=== PATIENT | female | born 1955 | race Caucasian/White ===

== ENCOUNTER 2017-03-26 08:40 | Observation (INO) ==
[2017-03-26] MEDS ORDERED: Ipratropium/Albuterol Neb 3 ML IH ONE (09:03)
[2017-03-26] MEDS ORDERED: methylPREDNISolone 125 MG/2 ML VIAL IVP ONE (09:03)
[2017-03-26] MEDS ORDERED: Aspirin 81 MG TAB.CHEW PO ONE (09:06)
--- NOTE | 2017-03-26 09:11 | Emergency Department Note ---
Disposition Clinical Impression: Acute exacerbation of chronic obstructive airways disease Disposition: Admitted As Inpatient Condition: Good Forms: ED Satisfaction Letter Time of Disposition: 09:12 SOB HPI - General Chief Complaint: ED Shortness of Breath/Dyspnea Stated Complaint: KUSH Time Seen by Provider: 03/26/17 08:50 Source: patient Limitations: no limitations Nursing Notes Reviewed: Yes Vital Signs Reviewed: Yes - History of Present Illness 61-year-old female presents with concerns of increasing shortness of breath over the past 2-3 days. Patient reports chest pain 2 nights ago which has since improved however she has developed increasing shortness of breath at rest and with conversation. Patient has a history of MS with 2 stents she also has a history of COPD and congestive heart failure. Patient states she had a meal of [place] fried chicken for Mother's Day 3 days ago. She takes Lasix 40 mg daily and has not missed any of her doses. Patient reports occasional diaphoresis and nausea associated with the shortness of breath. Patient reports a cough that is productive of yellow-green sputum. Patient denies near syncopal symptoms. - Related Data Home Medications Medication Instructions Recorded Confirmed Albuterol Sulfate [Albuterol 90 mcg IH Q4HR PRN 11/28/15 11/28/15 Inhaler] Aspirin [Adult Low Dose Aspirin EC] 81 mg PO DAILY 11/28/15 11/28/15 Atorvastatin Calcium [Lipitor] 80 mg PO HS 11/28/15 11/28/15 Carbidopa/Levodopa 25/100 [Sinemet 1 each PO TID 11/28/15 11/28/15 25/100] Carvedilol [Coreg] 25 mg PO BID 11/28/15 11/28/15 Citalopram Hydrobromide 40 mg PO DAILY 11/28/15 11/28/15 [Citalopram HBr] Furosemide [Lasix] 40 mg PO DAILY 11/28/15 11/28/15 GlipiZIDE XL (24 HR) [Glucotrol XL] 10 mg PO DAILY 11/28/15 11/28/15 Iron Polysaccharide Complex 150 mg PO BID 11/28/15 11/28/15 [Ferric X-150] Losartan Potassium [Cozaar] 100 mg PO DAILY 11/28/15 11/28/15 Ropinirole HCl [Requip] 2 mg PO HS 11/28/15 11/28/15 amLODIPine [Norvasc] 5 mg PO DAILY 11/28/15 11/28/15 hydrALAZINE [HydrALAZINE] 25 mg PO BID 11/28/15 11/28/15 metFORMIN [Glucophage] 500 mg PO BID 11/28/15 11/28/15 Allergies Allergy/AdvReac Type Severity Reaction Status Date / Time No Known Allergies Allergy Verified 03/26/17 08:45 All systems ED: reviewed and negative except as stated. Constitutional: Reports: weakness. Denies: fever, chills ENT ED: Denies: ear pain, throat pain Cardiovascular: Reports: dyspnea on exertion. Denies: chest pain, palpitations , syncope Respiratory: Reports: cough, dyspnea, wheezes Gastrointestinal: Reports: nausea. Denies: abdominal pain, vomiting, diarrhea Musculoskeletal: Denies: back pain, neck pain Past Medical History - Past Medical History Attestation: Yes The following information was validated with the patient. 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 Musculoskeletal: Normal strength, no tenderness, swelling or deformity GI: Soft, nontender, nondistended. Bowel sounds present Neuro: A&O to person, place, time and situation. No focal deficits noted on exam Psychiatric: cooperative and appropriate mood and affect. - General Limitations: no limitations General appearance: alert Course Vital Signs Temperature 98 F 03/26/17 08:46 Pulse Rate 70 03/26/17 08:46 Respiratory Rate 24 03/26/17 08:46 Blood Pressure 194/76 03/26/17 08:46 O2 Sat by Pulse Oximetry 93 03/26/17 08:46 Temperature 98 F 03/26/17 08:46 Pulse Rate 70 03/26/17 08:46 Respiratory Rate 24 03/26/17 08:46 Blood Pressure 194/76 03/26/17 08:46 O2 Sat by Pulse Oximetry 93 03/26/17 08:46 Oxygen Delivery Oxygen Delivery Room Air Shortness of Breath/Dyspnea - Medical Records Medical records reviewed: Yes I reviewed the patient's medical records. - Lab Data Lab results reviewed: Yes I reviewed the patient's lab results. - Radiology Data Radiology results reviewed: Yes I reviewed the patient's radiology results. - EKG Data EKG attestation: Yes I reviewed and interpreted this EKG. EKG results narrative: ECG - interpreted by ED physician. Rate 69, normal sinus rhythm, no STEMI, T- wave inversion in leads i, ii, V5 V6, unchanged from previous.
[2017-03-26 09:21] LABS: Basophils # 0.1 K/mcL (0.0-0.2); Basophils % 0.7 %; Eosinophils # 0.2 K/mcL (0.0-0.6); Eosinophils % 3.2 %; Hematocrit 34.4 % (35.3-44.9); Immature Granulocytes % 0.3 % (0-4); Lymphocytes # 0.7 K/mcL (0.6-4.6); Mean Corpuscular Hemoglobin 27.2 pg (28.0-33.3); Mean Corpuscular Volume 84.9 fL (83.0-100.0); Mean Platelet Volume 10.8 fL (9.4-12.4); Monocytes # 0.8 K/mcL (0.0-1.3); Monocytes % 10.1 %; Neutrophils # 5.8 K/mcL (1.6-8.9); Platelet Count 162 K/mcL (140-400); Red Blood Count 4.05 M/mcL (3.82-4.97); Red Cell Distribution Width 16.3 % (11.5-14.5); Segmented Neutrophils % 76.7 %
[2017-03-26 09:28] LABS: INR 1.2; Prothrombin Time 12.6 Seconds (9.4-12.1)
[2017-03-26 09:31] LABS: Activated Partial Thrombo Time 33.2 Seconds (26.0-36.0)
[2017-03-26 09:33] LABS: BUN/Creatinine Ratio 12 (6-26); Blood Urea Nitrogen 11 mg/dL (7-20); Calcium 10.4 mg/dL (8.6-10.8); Carbon Dioxide 26 mEq/L (19-29); Chloride 107 mEq/L (98-109); Glucose 56 mg/dL (70-99); Osmolality,Calculated 287 (280-300); Potassium 3.7 mEq/L (3.5-4.5); Sodium 140 mEq/L (136-145); eGFR For African Americans > 60 (> 60); eGFR For Non-African Americans > 60 (> 60)
[2017-03-26] MEDS ORDERED: Furosemide 40 MG/4 ML VIAL IVP ONE (09:50)
[2017-03-26] MEDS ORDERED: Naloxone 0.4 MG/ML INJ IVP PRN (10:45)
[2017-03-26] MEDS ORDERED: Albuterol 2.5 MG/3 ML NEBULIZER IH PRN (10:47)
[2017-03-26] MEDS ORDERED: Dextrose Gel 15 GM PO PRN ×2 (10:49)
[2017-03-26] MEDS ORDERED: D5% in Water 1,000 ML IVC PRN (10:49)
[2017-03-26] MEDS ORDERED: *HR* Dextrose 50 % in Water (Syg) 50 ML SYRINGE IVP PRN (10:49)
--- NOTE | 2017-03-26 10:57 | Internal Med History&Physical ---
Date of Encounter: 03/26/17 Time of Encounter: 10:57 Assessment and Plan (1) Acute exacerbation of CHF (congestive heart failure) Current visit: Yes Status: Acute 1 patient has been excruciating increasing shortness of breath and lower extremity edema for approximately 2-3 days. BNP elevated chest x-ray basilar congestion patient has history of CHF has only been taking half a dose of Lasix daily. We will diuresis patient continued IV Lasix twice a day 2 obtain cardiac echo 3 continue his cardiac monitoring 4 monitor intake output daily weights 5 low-sodium diet 6 oxygen as needed to maintain SPO2 greater than 92% 7 fluid restriction Qualifiers: Congestive heart failure type: diastolic Qualified Code(s): I50.33 - Acute on chronic diastolic (congestive) heart failure (2) HTN (hypertension) Current visit: Yes Status: Chronic 1 continue home medications goal is to maintain systolic less than 140 2 low sodium diet Qualifiers: Hypertension type: essential hypertension Qualified Code(s): I10 - Essential (primary) hypertension (3) Diabetes mellitus Current visit: Yes Status: Chronic 1 patient's on metformin at home we will hold for now. 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 patient is a current smoker she has rescue inhaler at home however she is not on any home oxygen. Patient has been expressing increasing shortness of breath. Encourage patient to stop smoking 2 continue with bronchodilators 3 oxygen titrating to maintain SPO2 greater than 92% 4 patient may benefit from a 6 minute walk test for oxygen placement home. Patient states she has been experiencing shortness of breath over the past few months. She has attempted to quit smoking in the past has not been successful. She is not on any home oxygen at this time Qualifiers: COPD type: unspecified COPD Qualified Code(s): J44.9 - Chronic obstructive pulmonary disease, unspecified (6) Tobacco abuse Current visit: Yes Status: Acute 1 patient smokes 1 pack a day encouraged patient to stop smoking. Nicotine patch Internal Medicine - H&P: HPI Chief complaint: Shortness of breath Admitted From: Emergency Dept Plans for Post Hospital Care: Home History of present illness: Ms. Dinero is a 61 year old female past medical history of coronary artery disease with stent placement diastolic heart failure diabetes type 2 COPD tobacco abuse hypertension. Continue the patient she has been expressing increasing shortness of breath over the past 2-3 days. She was breath occurs at rest and on exertion. She is using albuterol inhaler without any relief. She denies any palpitations weight gain or weight loss she does admit to lower extremity edema wheezing cough with yellow-green sputum. Patient states cough is chronic and there is no change in sputum production. She denies any fevers chills nausea vomiting diarrhea orthopnea or chest pain. Patient did have heartburn on Saturday which she took a Zantac and was resolved. Patient presented to the ER with above complaints. Coronary ER records lab work is unremarkable except BNP was 1512 troponin 0.03 chest x-ray did reveal some vascular congestion. EKG with no ST-T wave abnormalities. Patient was given breathing treatment IV Lasix as well as steroids. She has been admitted for further workup and evaluation. Presently patient denies any chest pain or shortness of breath she does not appear to be any respiratory distress. Oxygen saturation is 95% on 2 L nasal cannula. Lung sounds with scattered wheezes and rhonchi throughout patient does have a moist cough. She has slight pedal edema to left lower extremity. Heart sounds S1-S2 with no rubs, clicks or murmurs noted. After review medications patient did admit she only takes half her Lasix daily and does not use her inhaler as frequently as she should. She continues to smoke a pack of cigarettes daily. Encourage patient to stop smoking. I reviewed this case with Dr. Chowdhury who agrees with plan. Past Med Surg Social Fam HX - Past Medical History Medical history: COPD, coronary artery disease, diabetes, other Psychiatric history: depression - Past Surgical History Surgical History: pacemaker/AICD, other - Social History Smoking Status: Current every day smoker Smokeless Tobacco Status: No Alcohol use: none Drug use: none - Family History Father Living Status: Cause of : Stroke Mother Living Status: Cause of : Heart disease Hx Family Cardiac Disorders: Yes Hx Family Endocrine Disorder: Yes Internal Medicine - H&P: Meds Albuterol Sulfate [Albuterol Inhaler] 90 mcg IH Q4HR PRN 11/28/15 [History] Aspirin [Adult Low Dose Aspirin EC] 81 mg PO DAILY 11/28/15 [History] Atorvastatin Calcium [Lipitor] 80 mg PO HS 11/28/15 [History] Carbidopa/Levodopa 25/100 [Sinemet 25/100] 1 each PO TID 11/28/15 [History] Carvedilol [Coreg] 25 mg PO BID 11/28/15 [History] Citalopram Hydrobromide [Citalopram HBr] 40 mg PO DAILY 11/28/15 [History] Furosemide [Lasix] 40 mg PO DAILY 11/28/15 [History] GlipiZIDE XL (24 HR) [Glucotrol XL] 10 mg PO DAILY 11/28/15 [History] Iron Polysaccharide Complex [Ferric X-150] 150 mg PO BID 11/28/15 [History] Losartan Potassium [Cozaar] 100 mg PO DAILY 11/28/15 [History] Ropinirole HCl [Requip] 2 mg PO HS 11/28/15 [History] amLODIPine [Norvasc] 5 mg PO DAILY 11/28/15 [History] hydrALAZINE [HydrALAZINE] 25 mg PO BID 11/28/15 [History] metFORMIN [Glucophage] 500 mg PO BID 11/28/15 [History] Allergies No Known Allergies Allergy (Verified 03/26/17 08:45) All Systems PM: A 10-system review of systems was performed and is negative for pertinent findings except as documented above in the HPI. - Constitutional Constitutional: no chills, no fever(s), no night sweats - EENT Eyes: no change in vision, no discharge, no pain, no photophobia - Cardiovascular Cardiovascular ROS IM: dyspnea, edema - Respiratory Respiratory: cough, dyspnea, wheezing - Gastrointestinal Gastrointestinal: heartburn - Genitourinary Genitourinary: no change in urinary stream, no dysuria, no flank pain, no hematuria - Musculoskeletal Musculoskeletal ROS IM: no numbness, no tingling - Integumentary Integumentary IM: no rash, no unusual bruising - Neurological Neurological ROS: no confusion, no convulsions, no focal weakness, no numbness, no tingling, no tremor(s) - Hematologic/Lymphatic Hematologic/Lymphatic: no easy bruising - Constitutional Vitals: Temp Pulse Resp BP Pulse Ox 98 F 70 18 188/92 95 03/26/17 08:46 03/26/17 10:01 03/26/17 10:46 03/26/17 10:46 03/26/17 10:01 General appearance: Present: A&O X 3, answers questions appropriately - Head Head exam: Present: atraumatic, normocephalic - Eye Eye exam: Present: PERRL, conjuntiva pink, sclera anicteric Pupils: Present: PERRL - Neck Neck exam general surgery: Present: supple, trachea midline. Absent: lymphadenopathy - Respiratory Respiratory exam: Present: rhonchi, wheezes. Absent: accessory muscle use, rales - Cardiovascular Cardiovascular exam: Present: RRR, +S1, +S2. Absent: diastolic murmur, gallop, rubs, systolic murmur - GI/Abdominal GI/Abdominal exam: Present: normal bowel sounds, soft, no peritoneal signs. Absent: distended, tenderness - Extremities Exam Extremities exam: Present: pedal edema, warm, radial pulses palpable and symetrical. Absent: calf tenderness, cyanotic - Neurological Exam Neurological exam: Present: CN II-XII intact, oriented X3, no focal deficits. Absent: pronater drift, facial droop, speech deficit - Skin Skin exam: Present: dry, intact Internal Med - H&P Results - Labs CBC & Chem 7: 03/26/17 09:13 03/26/17 09:13 - EKG Data EKG shows normal: sinus rhythm - EKG Data Prior EKG available for review: yes When compared to previous EKG: there is no significant change - Diagnostic Studies Other Images Additional comments: Chest X-Ray 03/26/17 09:05 IMPRESSION: 1. Minimal prominence of the pulmonary vasculature bilaterally. 2. Unchanged nodular opacity projecting over the right mid lung. D/ / Regan Murphy MD / Regan Murphy MD Interpreting Provider: Regan Murphy MD
[2017-03-26] MEDS: Ipratropium/Albuterol Neb 3 ML IH SCH ×3 (11:38→23:03)
[2017-03-26] MEDS: Insulin LISPRO 300 UNITS/3 ML VIAL SQ SCH ×3 (11:43→21:23)
--- NOTE | 2017-03-26 11:54 | Event Note ---
Date of Encounter: 03/26/17 Time of Encounter: 11:51 Patient seen and examined with TILE GRINDER. Acute CHF. Lasix 40 IV BID. Mariano catheter. Strict I and O. She has coarse breath sound and some expiratory wheeze. I think main pathology is volume. She has underlying COPD and we will give nebulizer treatments. Sputum culture as she has been having yellowish sputum. Afebrile without leucocytosis and no pneumonia on CXR. Check echocardiogram
[2017-03-26] MEDS ORDERED: methylPREDNISolone 125 MG/2 ML VIAL IVP SCH (12:00)
[2017-03-26] MEDS: Nicotine 14 MG PATCH.TD24 TD SCH (12:28)
[2017-03-26] MEDS: Aspirin Enteric Coated 81 MG Tablet PO SCH (13:29)
[2017-03-26] MEDS: hydrALAZINE 25 MG TABLET PO SCH ×2 (13:29→21:22)
--- NOTE | 2017-03-26 15:02 | Electrocardiograph Report ---
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
[2017-03-26] MEDS: Carbidopa/Levodopa 25/100 TABLET PO SCH ×2 (16:20→21:22)
[2017-03-26] MEDS ORDERED: Acetaminophen 325 MG TABLET PO PRN (20:11)
[2017-03-26] MEDS ORDERED: hydrALAZINE 25 MG TABLET PO SCH (21:00)
[2017-03-26] MEDS ORDERED: Insulin LISPRO 300 UNITS/3 ML VIAL SQ SCH (21:00)
[2017-03-26] MEDS: Iron Polysaccharide Complex 150 MG CAPSULE PO SCH (21:22)
[2017-03-26] MEDS: Furosemide 40 MG/4 ML VIAL IVP SCH (21:22)
[2017-03-26] MEDS: rOPINIRole 1 MG TABLET PO SCH (21:22)
[2017-03-27 03:59] LABS: Basophils % 0.1 %; Hematocrit 34.7 % (35.3-44.9); Hemoglobin 11.4 g/dL (11.5-15.4); Immature Granulocytes % 0.8 % (0-4); Lymphocytes # 0.4 K/mcL (0.6-4.6); Lymphocytes % 4.7 %; Mean Corpuscular HGB Conc 32.9 g/dL (31.6-35.5); Mean Corpuscular Hemoglobin 27.5 pg (28.0-33.3); Mean Corpuscular Volume 83.6 fL (83.0-100.0); Mean Platelet Volume 11.9 fL (9.4-12.4); Monocytes # 0.5 K/mcL (0.0-1.3); Neutrophils # 6.6 K/mcL (1.6-8.9); Platelet Count 185 K/mcL (140-400); Red Blood Count 4.15 M/mcL (3.82-4.97); Red Cell Distribution Width 15.9 % (11.5-14.5); Segmented Neutrophils % 87.4 %
[2017-03-27 04:15] LABS: Calcium 11.1 mg/dL (8.6-10.8); Potassium 3.9 mEq/L (3.5-4.5)
[2017-03-27] MEDS: Ipratropium/Albuterol Neb 3 ML IH SCH ×4 (04:45→22:23)
[2017-03-27] MEDS: *HR* Enoxaparin 40 MG/0.4 ML SYRINGE SQ SCH (06:14)
[2017-03-27] MEDS ORDERED: Furosemide 40 MG/4 ML VIAL IVP SCH (09:00)
[2017-03-27] MEDS ORDERED: NON-FORMULARY MEDICATION 1 EACH EACH (Losartan Potassium [Cozaar] 100 MG) PO SCH (09:00)
[2017-03-27] MEDS: Insulin LISPRO 300 UNITS/3 ML VIAL SQ SCH ×4 (09:55→20:51)
[2017-03-27] MEDS: Aspirin Enteric Coated 81 MG Tablet PO SCH (09:56)
[2017-03-27] MEDS: Furosemide 40 MG/4 ML VIAL IVP SCH ×2 (09:56→20:59)
[2017-03-27] MEDS: Nicotine 14 MG PATCH.TD24 TD SCH (09:56)
[2017-03-27] MEDS: Iron Polysaccharide Complex 150 MG CAPSULE PO SCH ×2 (09:56→20:56)
[2017-03-27] MEDS: hydrALAZINE 25 MG TABLET PO SCH ×3 (09:56→20:56)
[2017-03-27] MEDS: Carbidopa/Levodopa 25/100 TABLET PO SCH ×3 (09:57→20:55)
--- NOTE | 2017-03-27 10:16 | ECHO - Doppler Report ---
Echocardiogram Name: Kim Dinero Date of Study: 03/26/2017 Date: 1955 Ht: 64.0 in Medical Record#: [id number] Age: 61 Wt: 164.0 lb Gender: Female BSA: 1.8 Order #: [id number] Location: [facility] Room #: 3B39 Reading Physician: Duncan Ventura MD, [facility] Tailman: Deanna Lopez Ordering Physician: Tamanna Frias CNP Primary Physician: Fernando Soto DO Indications: Shortness of breath Impressions: Normal LV systolic function, LVEF 60%. Severe concentric left ventricular hypertrophy. Moderate left ventricular diastolic dysfunction. Normal right ventricular size and function. A device lead was visualized in the right atrium and right ventricle. Moderately dilated left atrium. No significant valvular dysfunction. Mild pulmonary hypertension. Estimated RVSP = 36 mmHg. Blood pressure was elevated (194/74) at the time of this study. Left Ventricular Wall Motion: Rest Echo Findings All wall segments showed normal motion. Findings: Study Quality * Suboptimal echo windows. ECG Findings * Normal sinus rhythm. Left Ventricle * Normal LV systolic function, LVEF 60%. * Normal LV chamber size. * Severe concentric left ventricular hypertrophy. * Moderate left ventricular diastolic dysfunction. Right Ventricle * Normal right ventricular size and function. Device lead * A device lead was visualized in the right atrium and right ventricle. Left Atrium * Moderately dilated left atrium. Right Atrium * Normal right atrial size. Aorta * Normally sized aortic root. Pericardium * There is no pericardial effusion present. IVC * Normal IVC dimensions and inspiratory collapse. Aortic Valve * Aortic valve not well visualized. Appears mild-moderately sclerotic. * No aortic stenosis. * No aortic regurgitation. Mitral Valve * Moderate mitral annular calcification * No mitral stenosis. * Trace mitral regurgitation. Tricuspid Valve * Normal tricuspid valve structure. * No tricuspid stenosis. * Trace tricuspid regurgitation. * Mild pulmonary hypertension. Estimated RVSP = 36 mmHg. Pulmonic Valve * Pulmonic valve not well visualized. * No pulmonic stenosis. * Trace pulmonic regurgitation. History Hypertension Diabetes Hypercholesteremia History of Smoking Years 40 Packs 1 Family History of CAD History of CAD/PTCA Myocardial Infarction Congestive Heart Failure Pacer/ICD Implant 02/25/2014 a Previous Echo was performed. Measurements: BP: 194/ 74 2D Normal Values RVIDd: 2.70 cm IVSd: 2.30 cm 0.6 - 1.0 cm LVIDd: 4.60 cm 3.7 - 5.6 cm LVPWd: 1.90 cm 0.6 - 1.1 cm LVIDs: 1.90 cm 1.5 - 3.6 cm AO: 3.30 cm < 4.0 cm LA volume: 70 Mitral Valve Peak E:1.66 m/sec Peak A:1.08 m/sec E/A Ratio:1.5 Peak E' Lat Marshall:4.29 cm/s Peak E' Med Marshall:3.22 cm/s E/E' Lat Ratio:38.7 E/E' Med Ratio:51.6 Tricuspid Valve TV Regurg Peak Grad: 33.00mmHg TV Regurg Peak Marshall: 2.90m/sec Updated by Duncan Ventura MD, [facility] on 03/27/2017 10:08:40 AM electronically signed on 03/27/2017 10:09:28 AM with status of Final Wall Motion Lobo: 1=Normal, 2=Hypokinesis, 3=Akinesis, 4=Dyskinesis, 5=Aneurysmal, 6=Hyperkinetic, X=Not Visualized (Blank)=Missing
--- NOTE | 2017-03-27 11:59 | Internal Med Progress Note ---
Date of Encounter: 03/27/17 Time of Encounter: 09:30 - Assessment and plan (1) Acute exacerbation of CHF (congestive heart failure) Current Visit: Yes Status: Acute Assessment and plan: Diuresing with IV furosemide. Patient's pedal edema has resolved. Her shortness of breath is improving. Upon admission, she was on 3 L per nasal cannula, will wean to room air as tolerated. No oxygen at home. Chest x-ray consistent with pulmonary vascular congestion. Echocardiogram consistent with diastolic heart failure with preserved ejection fraction. Acute on chronic diastolic heart failure with acute exacerbation. Current echocardiogram revealing severe concentric left ventricular hypertrophy, and when compared from her echocardiogram in 02/25/14, is consistent. Her echocardiogram in the past in 2013 also reveals severe diastolic dysfunction, current readings with moderate diastolic dysfunction. Current echocardiogram appears improved from prior. We will continue to diurese. ITS Impressions Chest X-Ray 03/26/17 09:05 IMPRESSION: 1. Minimal prominence of the pulmonary vasculature bilaterally. 2. Unchanged nodular opacity projecting over the right mid lung. D/ / Regan Murphy MD / Regan Murphy MD Interpreting Provider: Regan Murphy MD Echocardiogram impressions: Normal LV systolic function, LVEF 60%. Severe concentric left ventricular hypertrophy. Moderate left ventricular diastolic dysfunction. Normal right ventricular size and function. A device lead was visualized in the right atrium and right ventricle. Moderately dilated left atrium. No significant valvular dysfunction. Mild pulmonary hypertension. Estimated RVSP equals 36 mmHg. Blood pressure is elevated (194/74) at the time of the study. Qualifiers: Congestive heart failure type: diastolic Qualified Code(s): I50.33 - Acute on chronic diastolic (congestive) heart failure (2) Acute exacerbation of chronic obstructive airways disease Current Visit: Yes Status: Acute Assessment and plan: Examination more consistent with fluid overload however patient does have wheezing to her left lung bermudez, will continue duo nebs and add guaifenesin as she has a nonproductive cough. She is currently on 3 L per nasal cannula, wean as she tolerates. (3) Acute respiratory failure Current Visit: Yes Status: Acute Assessment and plan: Does not use oxygen at home. Was on 3.5 L per nasal cannula initially upon admission, will wean as she tolerates. (4) CKD (chronic kidney disease) stage 3, GFR 30-59 ml/min Current Visit: Yes Status: Chronic Assessment and plan: Renal functioning is now consistent with her baseline. Mild HEMANTH overnight- but now at her baseline. Initial renal functioning consistent with fluid overload. Will trend with diuresing (5) HTN (hypertension) Current Visit: Yes Status: Chronic Assessment and plan: Uncontrolled despite continuation of her home medication of carvedilol 25 mg twice a day and losartan 100 mg daily. Diuresing with IV furosemide. Will add amlodipine. ARB okay at this time- will hold if renal functioning declines. Qualifiers: Hypertension type: essential hypertension Qualified Code(s): I10 - Essential (primary) hypertension (6) Diabetes mellitus Current Visit: Yes Status: Chronic Assessment and plan: Controlled at home with an A1c of 6.5%. Uncontrolled since arrival secondary to high dose IV steroids- continuing to adjust insulin to slowly bring glucose back down- goal of not more than 100 per hour decrease. (7) DVT prophylaxis Current Visit: Yes Status: Acute Assessment and plan: Subcutaneous Lovenox (8) COPD (chronic obstructive pulmonary disease) Current Visit: Yes Status: Chronic Qualifiers: COPD type: unspecified COPD Qualified Code(s): J44.9 - Chronic obstructive pulmonary disease, unspecified (9) Tobacco abuse Current Visit: Yes Status: Chronic Assessment and plan: Declines counseling at this time - Subjective Interval history: Patient seen and examined. On examination, patient sitting upright in bed conversing with her . Patient currently complains of a headache and denies vision changes or gait abnormalities. She states her shortness of breath is improving. She states that her cough is now nonproductive. She states she is eating well. - Constitutional Vitals: Temp Pulse Resp BP Pulse Ox 98.6 F 71 16 189/67 94 03/27/17 11:10 03/27/17 11:10 03/27/17 11:24 03/27/17 11:10 03/27/17 11:24 General appearance: Present: A&O X 3, pleasant, no acute distress, answers questions appropriately - Head Head exam: Present: atraumatic, normocephalic - Eye Eye exam: Present: PERRL, conjuntiva pink, sclera anicteric Pupils: Present: PERRL - Neck Neck exam general surgery: Present: supple, trachea midline. Absent: lymphadenopathy - Respiratory Respiratory exam: Present: accessory muscle use, decreased breath sounds, wheezes (On the left, right side clear). Absent: rales, respiratory distress, rhonchi - Cardiovascular Cardiovascular exam: Present: RRR, +S1, +S2. Absent: diastolic murmur, gallop, rubs, systolic murmur - GI/Abdominal GI/Abdominal exam: Present: normal bowel sounds, soft, no peritoneal signs. Absent: distended, tenderness - Extremities Exam Extremities exam: Present: warm, radial pulses palpable and symetrical. Absent : calf tenderness, cyanotic, pedal edema - Neurological Exam Neurological exam: Present: alert, CN II-XII intact, oriented X3, no focal deficits, strengths equal and symetr throughout. Absent: pronater drift, facial droop, speech deficit - Skin Skin exam: Present: dry, intact, normal color, warm Internal Medicine: Result - Labs CBC & Chem 7: 03/27/17 03:24 03/27/17 03:24 Labs: Short CBC 03/27/17 Range/Units 03:24 WBC 7.6 (4.3-11.1) K/mcL Hgb 11.4 L (11.5-15.4) g/dL Hct 34.7 L (35.3-44.9) % Plt Count 185 (140-400) K/mcL Neutrophils # 6.6 (1.6-8.9) K/mcL BMP 03/27/17 03:24 Sodium 137 Potassium 3.9 Chloride 101 Carbon Dioxide 26 BUN 19 Creatinine 1.20 H Glucose 267 H Calcium 11.1 H Cardiac Enzymes 03/26/17 03/26/17 Range/Units 14:29 21:18 Troponin I 0.03 0.02 (0-0.03) ng/mL - ABG Interpretation ABG results: PT/INR, D-dimer PT 12.6 Seconds (9.4-12.1) H 03/26/17 09:13 Consult Discharge Plan - Plan Referrals: Fernando Soto DO [Primary Care Provider] -
[2017-03-27] MEDS: amLODIPine 5 MG TABLET PO SCH (14:01)
[2017-03-27] MEDS: rOPINIRole 1 MG TABLET PO SCH (20:54)
[2017-03-28] MEDS: Ipratropium/Albuterol Neb 3 ML IH SCH ×2 (04:16→10:56)
[2017-03-28 07:26] LABS: Calcium 11.4 mg/dL (8.6-10.8); Potassium 3.9 mEq/L (3.5-4.5)
[2017-03-28] MEDS: Carbidopa/Levodopa 25/100 TABLET PO SCH (07:59)
[2017-03-28] MEDS: Iron Polysaccharide Complex 150 MG CAPSULE PO SCH (07:59)
[2017-03-28] MEDS: Aspirin Enteric Coated 81 MG Tablet PO SCH (08:01)
[2017-03-28] MEDS: Furosemide 40 MG/4 ML VIAL IVP SCH (08:01)
[2017-03-28] MEDS: hydrALAZINE 25 MG TABLET PO SCH (08:01)
[2017-03-28] MEDS: amLODIPine 5 MG TABLET PO SCH (08:01)
[2017-03-28] MEDS: *HR* Enoxaparin 40 MG/0.4 ML SYRINGE SQ SCH (08:01)
[2017-03-28] MEDS: Insulin LISPRO 300 UNITS/3 ML VIAL SQ SCH ×2 (08:02→12:46)
[2017-03-28] MEDS: Nicotine 14 MG PATCH.TD24 TD SCH (08:11)
--- NOTE | 2017-03-28 10:58 | Discharge Summary ---
Date of Encounter: 03/28/17 Time of Encounter: 09:30 - Discharge Diagnosis (1) Acute exacerbation of CHF (congestive heart failure) Priority: Primary Status: Acute Comments: Patient denied shortness of breath above her normal day of discharge. Her pedal edema resolved. She was successfully diuresed with IV furosemide. She has been educated on fluid and sodium restricted diet. Follow-up outpatient. Qualifiers: Congestive heart failure type: diastolic Qualified Code(s): I50.33 - Acute on chronic diastolic (congestive) heart failure (2) Acute exacerbation of chronic obstructive airways disease Priority: Primary Status: Acute Comments: Examination more consistent with fluid overload however patient did have some wheezing while admitted so she was treated with duo nebs and guaifenesin. She did qualify for oxygen on day of discharge- followup outpatient (3) Acute respiratory failure Priority: Primary Status: Acute Qualifiers: Respiratory failure complication: unspecified whether with hypoxia or hypercapnia Qualified Code(s): J96.00 - Acute respiratory failure, unspecified whether with hypoxia or hypercapnia (4) CKD (chronic kidney disease) stage 3, GFR 30-59 ml/min Priority: Secondary Status: Chronic Comments: Renal functioning remained stable throughout this admission. Initial renal functioning consistent with fluid overload. Follow-up outpatient (5) HTN (hypertension) Priority: Secondary Status: Chronic Comments: Uncontrolled on her home medication of carvedilol 25 mg twice a day and losartan 100 mg daily and furosemide. Amlodipine added to her regimen. Recommend daily blood pressure checks and follow-up outpatient Qualifiers: Hypertension type: essential hypertension Qualified Code(s): I10 - Essential (primary) hypertension (6) Diabetes mellitus Priority: Secondary Status: Chronic Comments: Controlled at home with an A1c of 6.5%. Initially uncontrolled upon admission secondary to high dose IV steroids- resolved with insulin. Follow-up outpatient. Qualifiers: Diabetes mellitus type: type 2 Diabetes mellitus complication status: without complication Diabetes mellitus halfway insulin use: without intermediate teacher use Qualified Code(s): E11.9 - Type 2 diabetes mellitus without complications (7) DVT prophylaxis Priority: Primary Status: Acute Comments: Subcutaneous Lovenox while admitted (8) COPD (chronic obstructive pulmonary disease) Priority: Secondary Status: Chronic Qualifiers: COPD type: unspecified COPD Qualified Code(s): J44.9 - Chronic obstructive pulmonary disease, unspecified (9) Tobacco abuse Priority: Secondary Status: Chronic Comments: Declined counseling - Discharge Medications Prescriptions: amLODIPine [Norvasc] 5 mg PO DAILY #30 tablet GuaiFENesin ER [Mucinex] 600 mg PO BID #20 tbbp.12hr Oxygen 2 l IN CONT #1 each Home Medications: Aspirin [Adult Low Dose Aspirin EC] 81 mg PO DAILY 11/28/15 [History] Atorvastatin Calcium [Lipitor] 80 mg PO HS 11/28/15 [History] Carbidopa/Levodopa 25/100 [Sinemet 25/100] 2 each PO TID 11/28/15 [History] Carvedilol [Coreg] 25 mg PO BID 11/28/15 [History] Citalopram Hydrobromide [Citalopram HBr] 40 mg PO DAILY 11/28/15 [History] Furosemide [Lasix] 40 mg PO DAILY 11/28/15 [History] GlipiZIDE XL (24 HR) [Glucotrol XL] 10 mg PO DAILY 11/28/15 [History] Iron Polysaccharide Complex [Ferric X-150] 150 mg PO BID 11/28/15 [History] Losartan Potassium [Cozaar] 100 mg PO DAILY 11/28/15 [History] Ropinirole HCl [Requip] 2 mg PO HS 11/28/15 [History] hydrALAZINE [HydrALAZINE] 25 mg PO BID 11/28/15 [History] metFORMIN [Glucophage] 500 mg PO TID 11/28/15 [History] Omeprazole [PriLOSEC] 20 mg PO DAILY 03/26/17 [History] GuaiFENesin ER [Mucinex] 600 mg PO BID #20 tbbp.12hr 03/28/17 [Rx] Oxygen 2 l IN CONT #1 each 03/28/17 [Rx] amLODIPine [Norvasc] 5 mg PO DAILY #30 tablet 03/28/17 [Rx] Allergies/Adverse Reactions: Allergies No Known Allergies Allergy (Verified 03/26/17 08:45) Procedures/tests Complete & Pending: Procedures Performed prior 72 hours Category Date Time Status EV echocardiogram Routine Y 03/26/17 10:50 Completed Date of admission: 03/26/17 10:13 Primary care physician: Ramon Joseph Consults: 03/28/17 10:26 Consult to Pre Sales Technical Consultant [CONS] Routine Reason for SW Consult: Qualified for new home oxygen Discharging clinician: Stephanie Cortés Anticipated date of discharge: 03/28/17 (with home oxygen) - Patient Status Disposition: Home, Self-Care Condition: Good Functional capacity at discharge: independent ambulation Overall status at discharge: patient is back to baseline - Discharge Instructions Follow Up With: Fernando Soto DO [Primary Care Provider] - Additional Instructions: Follow-up with primary care provider within one to 2 weeks - Diet and Activity Activity: increase activity as tolerated, wear oxygen at all times Diet: diabetic diet, low fat, low cholesterol, low salt diet, other (Fluid and sodium restricted diet) Hospital course: Ms. Dinero is a 61 year old female with past medical history of COPD, tobacco abuse, hypertension, CAD status post stent, diastolic heart failure, chronic kidney disease stage III. Patient presented to the emergency room chief complaint increasing shortness of breath 2-3 days. Patient stating shortness of breath occurred both at rest and on exertion. She was using her albuterol inhaler without relief. She denied palpitations, weight gain but did endorse lower extremity edema, wheezing, and a productive cough. She states the cough is chronic and unchanged than her baseline. She denied fever, chills, nausea vomiting or diarrhea. She denied chest pain. She did have an episode of heartburn that was relieved with Zantac at home. Workup in the emergency department unremarkable except for an elevated BNP. Chest x-ray also revealed vascular congestion consistent with fluid overload. Patient also had EKG abnormalities. She was admitted to the hospitalist service for further evaluation and management. Her troponins remained negative and her EKGs were reviewed by cardiology and there was a very low suscpicion for an DC at that time and acute coronary syndrome was ruled out. She had an echocardiogram that revealed ejection fraction of 60%, severe concentric left ventricular hypertrophy, and when compared from her echocardiogram in 02/25/14, is consistent. Her echocardiogram in the past in 2013 also revealed severe diastolic dysfunction, current readings with moderate diastolic dysfunction. Current echocardiogram appeared improved from prior. She was diuresed with IV furosemide over the course of her 2 night admission. On day of discharge, she denied shortness of breath above her norm and her pedal edema had resolved. She was educated during this admission on fluid and sodium restricted diets. She did require supplemental oxygenation and on day of discharge, despite being back to her baseline, patient did qualify for 2.5 L of continuous oxygen via nasal cannula for home. Patient and state that the patient has likely needed oxygen for quite some time but has been states they were unable to obtain it. Suspect respiratory failure progression of her COPD, she does continue to smoke. Renal functioning remains stable with diuresis. Blood pressure was uncontrolled despite her home medications being resumed so amlodipine was added to her regimen and her blood pressure had improved on day of discharge. She was instructed to check her blood pressure daily and keep a log for her primary care provider to review. She was initially hyperglycemic secondary to large doses of IV steroids given in the emergency department, this resolved and she returned to her baseline glucose levels prior to discharge. She was given insulin while admitted. She was discharged home in stable condition with close outpatient follow-up recommended. ITS Impressions Chest X-Ray 03/26/17 09:05 IMPRESSION: 1. Minimal prominence of the pulmonary vasculature bilaterally. 2. Unchanged nodular opacity projecting over the right mid lung. D/ / Regan Murphy MD / Regan Murphy MD Interpreting Provider: Regan Murphy MD Echocardiogram impressions: Normal LV systolic function, LVEF 60%. Severe concentric left ventricular hypertrophy. Moderate left ventricular diastolic dysfunction. Normal right ventricular size and function. A device lead was visualized in the right atrium and right ventricle. Moderately dilated left atrium. No significant valvular dysfunction. Mild pulmonary hypertension. Estimated RVSP equals 36 mmHg. Blood pressure is elevated (194/74) at the time of the study. - Time Spent with Patient Total time spent providing and/or coordinating discharge services: - Constitutional Vitals: Temp Pulse Resp BP Pulse Ox 98.1 F 67 17 159/74 93 03/28/17 07:48 03/28/17 07:48 03/28/17 07:48 03/28/17 07:48 03/28/17 10:21 General appearance: Present: A&O X 3, pleasant, no acute distress, answers questions appropriately - Head Head exam: Present: atraumatic, normocephalic - Eye Eye exam: Present: PERRL, conjuntiva pink, sclera anicteric Pupils: Present: PERRL - Neck Neck exam general surgery: Present: supple, trachea midline. Absent: lymphadenopathy - Respiratory Respiratory exam: Present: accessory muscle use, decreased breath sounds. Absent: rales, respiratory distress, rhonchi, wheezes - Cardiovascular Cardiovascular exam: Present: RRR, +S1, +S2. Absent: diastolic murmur, gallop, rubs, systolic murmur - GI/Abdominal GI/Abdominal exam: Present: normal bowel sounds, soft, no peritoneal signs. Absent: distended, tenderness - Extremities Exam Extremities exam: Present: warm, radial pulses palpable and symetrical. Absent : calf tenderness, cyanotic, pedal edema - Neurological Exam Neurological exam: Present: alert, CN II-XII intact, normal gait, oriented X3, no focal deficits, strengths equal and symetr throughout. Absent: pronater drift, facial droop, speech deficit - Skin Skin exam: Present: dry, intact, normal color, warm
[2017-03-28 12:07] VITALS: BP 136/63
== END 2017-03-28 14:53 | disposition home or self-care (01) ==
LOC: 3BNU 08:40 → EMEROO 08:40 → 3BNU 10:58
PROVIDERS: ADMIT Nurse Practitioner Acute Care; ATTEND Nurse Practitioner Family

== ENCOUNTER 2018-02-20 06:33 | Observation (INO) ==
--- NOTE | 2018-02-20 07:14 | Emergency Department Note ---
Disposition Clinical Impression: ACS (acute coronary syndrome), Elevated troponin, Bronchitis, Pulmonary nodule COPD (chronic obstructive pulmonary disease) Qualifiers: COPD type: unspecified COPD Qualified Code(s): J44.9 - Chronic obstructive pulmonary disease, unspecified Disposition: Admitted As Inpatient Condition: Fair Referrals: Fernando Soto DO [Primary Care Provider] - Forms: ED Satisfaction Letter General Adult HPI - General Chief complaint: ED Upper Respiratory Infection Stated complaint: cold symptoms Time Seen by Provider: 02/20/18 06:46 Source: patient, family Mode of arrival: private vehicle Limitations: no limitations Nursing Notes Reviewed: Yes Vital Signs Reviewed: Yes - History of Present Illness Pt Subjective Complaint: Patient states, "I have a cold" Onset (ago): day(s) (3 or 4) Location: other ("No pain, just coughing a lot") Radiation: non-radiation Pain Scale: 0 Consistency: intermittent, Worsening Improves with: nothing Worsens with: other (coughing) Associated symptoms: Reports: cough, diaphoresis ("This AM awoke very sweaty"), fever/chills. Denies: confusion, chest pain, headaches, loss of appetite, malaise, nausea/vomiting, rash, seizure, shortness of breath, syncope, weakness Treatments Prior to Arrival: none - Related Data Home Medications Medication Instructions Recorded Confirmed Aspirin [Adult Low Dose Aspirin EC] 81 mg PO DAILY 11/28/15 02/20/18 Atorvastatin Calcium [Lipitor] 80 mg PO HS 11/28/15 02/20/18 Carbidopa/Levodopa 25/100 [Sinemet 2 each PO TID 11/28/15 02/20/18 25/100] Carvedilol [Coreg] 25 mg PO BID 11/28/15 02/20/18 Citalopram Hydrobromide 40 mg PO DAILY 11/28/15 02/20/18 [Citalopram HBr] Furosemide [Lasix] 40 mg PO DAILY 11/28/15 02/20/18 GlipiZIDE XL (24 HR) [Glucotrol XL] 10 mg PO DAILY 11/28/15 02/20/18 Iron Polysaccharide Complex 150 mg PO BID 11/28/15 02/20/18 [Ferric X-150] Losartan Potassium [Cozaar] 100 mg PO DAILY 11/28/15 02/20/18 Ropinirole HCl [Requip] 2 mg PO HS 11/28/15 02/20/18 hydrALAZINE [HydrALAZINE] 25 mg PO BID 11/28/15 02/20/18 metFORMIN [Glucophage] 500 mg PO TID 11/28/15 02/20/18 Omeprazole [PriLOSEC] 20 mg PO DAILY 03/26/17 02/20/18 Cholecalciferol (D-3) [Vitamin D] 2,000 unit PO DAILY 02/20/18 02/20/18 Cinacalcet [Sensipar] 30 mg PO DAILY 02/20/18 02/20/18 Previous Rx's Medication Instructions Recorded GuaiFENesin ER [Mucinex] 600 mg PO BID #20 tbbp.12hr 03/28/17 Oxygen 2 l IN CONT #1 each 03/28/17 amLODIPine [Norvasc] 5 mg PO DAILY #30 tablet 03/28/17 Allergies Allergy/AdvReac Type Severity Reaction Status Date / Time No Known Allergies Allergy Verified 02/20/18 08:56 All systems ED: reviewed and negative except as stated. Review of Systems: As Per HPI Constitutional: Reports: fever, chills, night sweats ("last night, but I think I had a fever"). Denies: weakness, weight change Eyes: Denies: eye pain, eye discharge, vision change ENT ED: Reports: congestion. Denies: ear pain, throat pain, dysphagia Cardiovascular: Denies: chest pain, palpitations, dyspnea on exertion, orthopnea , edema, syncope Respiratory: Reports: cough, sputum production. Denies: dyspnea, wheezes, hemoptysis, stridor Gastrointestinal: Denies: abdominal pain, nausea, vomiting, diarrhea Genitourinary: Denies: dysuria Musculoskeletal: Denies: back pain, neck pain, joint swelling, arthralgia, myalgia Integumentary: Denies: rash Neurological: Denies: headache, weakness, numbness, paresthesias, confusion, abnormal gait Endocrine: Reports: fatigue Hematological/Lymphatic: Denies: easy bleeding, easy bruising, lymphadenopathy Allergic/Immunologic: Denies: facial swelling, urticaria Past Medical History - Past Medical History Attestation: Yes The following information was validated with the patient. Source: patient Medical history: Reports: cardiomyopathy (pacemaker), COPD, coronary artery disease (2 stents placed in 2008), diabetes, hypertension, thyroid disease, other ([place]) Surgical history: Reports: pacemaker/AICD, other Psychiatric history: Reports: depression SAWSMITH history: Reports: no SAWSMITH history - Social History Smoking Status: Current every day smoker Smokeless Tobacco Status: No Alcohol use: Reports: none Drug use: Reports: none Physical Exam - General Limitations: no limitations General appearance: alert, in no apparent distress - Head Head exam: atraumatic, normocephalic, normal inspection - Eye Eye exam: Present: normal appearance, PERRL, EOMI. Absent: scleral icterus, conjunctival injection, periorbital swelling, periorbital tenderness - ENT ENT exam: normal oropharynx, mucous membranes dry - Neck Neck exam: Present: normal inspection, full ROM, trachea midline. Absent: tenderness, meningismus, lymphadenopathy - Chest Chest inspection: Present: normal inspection, symmetric chest wall rise. Absent : tenderness - Respiratory Respiratory exam: Present: wheezes. Absent: normal lung sounds bilaterally, respiratory distress, stridor, accessory muscle use, prolonged expiratory phase - Expanded Respiratory Exam Location: wheezes: Left, Right, Upper, decreased breath sounds: Left, Right, Lower - Cardiovascular Cardiovascular exam: Present: regular rate, normal rhythm, normal heart sounds - Extremities Exam Extremities exam: Present: normal inspection, normal capillary refill. Absent: pedal edema - Back Exam Back exam: Present: other (kyphosis). Absent: tenderness - Neurological Exam Neurological exam: Present: alert, oriented X3, CN II-XII intact, normal gait - Psychiatric Psychiatric exam: Present: normal affect, normal mood - Skin Skin exam: Present: warm, dry, intact, normal color Course Course Narrative: Patient presents from home with her for evaluation of upper and lower respiratory infection symptoms. She states that she has had congestion for a couple days and then cough that started yesterday. She has felt feverish and this morning woke up and was very sweaty. She denies dyspnea or hemoptysis. She states that her cough is productive. Her states that she has a really hard time coughing anything up. She denies headache, dizziness, vertigo , syncope or chest pain. She has had no nausea or vomiting and no diarrhea. She also denies sore throat, facial pain or pressure, neck pain or stiffness. She has a history of COPD, but states that she does not use her inhalers or oxygen very often. She states, "I only use them when I am really sick." On exam, she is hypoxic. She was 87% on room air When she entered the room. On 2 L O2 She is at 94%. She has a tremor from Parkinson's disease. She has audible nasal congestion and is slightly tachypnea. She has no retractions, no increased work of breathing. Wheezing is heard anteriorly with no adventitious breath sounds heard posteriorly. She does have slight decreased air movement. Heart sounds are normal. No meningeal signs. X-ray, labs and EKG have been ordered. EKG shows inverted T waves in the lateral leads. However, this is unchanged compared to previous. No other abnormal findings on the EKG. Chest x-ray was read by the radiologist as 1.5 cm pulmonary nodule, no pulmonary edema, no infiltrate. Labs show an elevated troponin at 0.05 and an elevated BNP in the 700s. Renal function is normal. Patient has not had an elevated troponin in the past. She does have history of coronary artery disease and has had two stents placed. This was in 2008. She sees Dr. Henderson, the indoor plant technician at [facility]. She will require admission for further evaluation and treatment of her symptoms and elevated troponin. Hospitalist has been contacted for admission. Case was discussed with Dr. Kunz. He has had [id number] time with the patient and agrees with the assessment, plan. Vital Signs Temperature 98.2 F 02/20/18 06:42 Pulse Rate 84 02/20/18 06:42 Respiratory Rate 20 02/20/18 06:42 Blood Pressure 190/82 02/20/18 06:42 O2 Sat by Pulse Oximetry 96 02/20/18 06:42 Temperature 98.2 F 02/20/18 06:42 Pulse Rate 68 02/20/18 07:43 Respiratory Rate 20 02/20/18 07:43 Blood Pressure 127/88 02/20/18 06:51 O2 Sat by Pulse Oximetry 95 02/20/18 07:43 Oxygen Delivery Oxygen Delivery Room Air Medical Decision Making - Medical Records Medical records reviewed: Yes I reviewed the patient's medical records. - Lab Data Lab results reviewed: Yes I reviewed the patient's lab results. Lab results narrative: Laboratory Last Values WBC 4.7 K/mcL (4.3-11.1) 02/20/18 07:35 RBC 4.35 M/mcL (3.82-4.97) 02/20/18 07:35 Hgb 12.7 g/dL (11.5-15.4) 02/20/18 07:35 Hct 37.4 % (35.3-44.9) 02/20/18 07:35 MCV 86.0 fL (83.0-100.0) 02/20/18 07:35 MCH 29.2 pg (28.0-33.3) 02/20/18 07:35 MCHC 34.0 g/dL (31.6-35.5) 02/20/18 07:35 RDW 14.3 % (11.5-14.5) 02/20/18 07:35 Plt Count 149 K/mcL (140-400) 02/20/18 07:35 MPV 11.0 fL (9.4-12.4) 02/20/18 07:35 Immature Gran % 0.4 % (0-4) 02/20/18 07:35 Seg Neutrophils % 61.2 % 02/20/18 07:35 Lymphocytes % 17.8 % 02/20/18 07:35 Monocytes % 15.7 % 02/20/18 07:35 Eosinophils % 4.3 % 02/20/18 07:35 Basophils % 0.6 % 02/20/18 07:35 Neutrophils # 2.8 K/mcL (1.6-8.9) 02/20/18 07:35 Lymphocytes # 0.8 K/mcL (0.6-4.6) 02/20/18 07:35 Monocytes # 0.7 K/mcL (0.0-1.3) 02/20/18 07:35 Eosinophils # 0.2 K/mcL (0.0-0.6) 02/20/18 07:35 Basophils # 0.0 K/mcL (0.0-0.2) 02/20/18 07:35 Sodium 140 mEq/L (136-145) 02/20/18 07:35 Potassium 4.0 mEq/L (3.5-5.1) 02/20/18 07:35 Chloride 109 mEq/L (98-107) H 02/20/18 07:35 Carbon Dioxide 27 mEq/L (23-29) 02/20/18 07:35 BUN 13 mg/dL (8-23) 02/20/18 07:35 Creatinine 1.14 mg/dL (0.60-1.20) 02/20/18 07:35 Est GFR ( Amer) 58 (> 60) L 02/20/18 07:35 Est GFR (Non-Af Amer) 48 (> 60) L 02/20/18 07:35 BUN/Creatinine Ratio 11 (6-26) 02/20/18 07:35 Glucose 61 mg/dL (70-105) L 02/20/18 07:35 Calculated Osmolality 288 (280-300) 02/20/18 07:35 Lactic Acid 1.0 mmol/L (0.5-2.2) 02/20/18 07:35 Calcium 9.9 mg/dL (8.6-10.3) 02/20/18 07:35 Troponin I 0.05 ng/mL (< 0.04) H* 02/20/18 07:35 B-Natriuretic Peptide 752 pg/mL (Less than 100) H 02/20/18 07:35 Result diagrams: 02/20/18 07:35 02/20/18 07:35 Lab Results 02/20/18 02/20/18 02/20/18 Range/Units 07:35 07:35 07:35 WBC 4.7 (4.3-11.1) K/mcL RBC 4.35 (3.82-4.97) M/mcL Hgb 12.7 (11.5-15.4) g/dL Hct 37.4 (35.3-44.9) % MCV 86.0 (83.0-100.0) fL MCH 29.2 (28.0-33.3) pg MCHC 34.0 (31.6-35.5) g/dL RDW 14.3 (11.5-14.5) % Plt Count 149 (140-400) K/mcL MPV 11.0 (9.4-12.4) fL Immature Gran % 0.4 (0-4) % Seg Neutrophils % 61.2 % Lymphocytes % 17.8 % Monocytes % 15.7 % Eosinophils % 4.3 % Basophils % 0.6 % Neutrophils # 2.8 (1.6-8.9) K/mcL Lymphocytes # 0.8 (0.6-4.6) K/mcL Monocytes # 0.7 (0.0-1.3) K/mcL Eosinophils # 0.2 (0.0-0.6) K/mcL Basophils # 0.0 (0.0-0.2) K/mcL Sodium 140 (136-145) mEq/L Potassium 4.0 (3.5-5.1) mEq/L Chloride 109 H (98-107) mEq/L Carbon Dioxide 27 (23-29) mEq/L BUN 13 (8-23) mg/dL Creatinine 1.14 (0.60-1.20) mg/dL Est GFR ( Amer) 58 L (> 60) Est GFR (Non-Af Amer) 48 L (> 60) BUN/Creatinine Ratio 11 (6-26) Glucose 61 L (70-105) mg/dL Calculated Osmolality 288 (280-300) Lactic Acid 1.0 (0.5-2.2) mmol/L Calcium 9.9 (8.6-10.3) mg/dL Troponin I 0.05 H* (< 0.04) ng/mL B-Natriuretic Peptide (Less than 100) pg/mL 02/20/18 02/20/18 Range/Units 07:35 09:08 WBC (4.3-11.1) K/mcL RBC (3.82-4.97) M/mcL Hgb (11.5-15.4) g/dL Hct (35.3-44.9) % MCV (83.0-100.0) fL MCH (28.0-33.3) pg MCHC (31.6-35.5) g/dL RDW (11.5-14.5) % Plt Count (140-400) K/mcL MPV (9.4-12.4) fL Immature Gran % (0-4) % Seg Neutrophils % % Lymphocytes % % Monocytes % % Eosinophils % % Basophils % % Neutrophils # (1.6-8.9) K/mcL Lymphocytes # (0.6-4.6) K/mcL Monocytes # (0.0-1.3) K/mcL Eosinophils # (0.0-0.6) K/mcL Basophils # (0.0-0.2) K/mcL Sodium (136-145) mEq/L Potassium (3.5-5.1) mEq/L Chloride (98-107) mEq/L Carbon Dioxide (23-29) mEq/L BUN (8-23) mg/dL Creatinine (0.60-1.20) mg/dL Est GFR ( Amer) (> 60) Est GFR (Non-Af Amer) (> 60) BUN/Creatinine Ratio (6-26) Glucose (70-105) mg/dL Calculated Osmolality (280-300) Lactic Acid 1.9 (0.5-2.2) mmol/L Calcium (8.6-10.3) mg/dL Troponin I (< 0.04) ng/mL B-Natriuretic Peptide 752 H (Less than 100) pg/mL - Radiology Data Radiology results reviewed: Yes I reviewed the patient's radiology results. Chest X-Ray 02/20/18 07:04 IMPRESSION: 1.5 cm right upper lobe pulmonary nodule for which CT of the chest with contrast is recommended. Mild cardiomegaly. D/ / 02/20/2018 08:10:21 Madi Langston MD / [email or web address] Interpreting Provider: Madi Langston MD - EKG Data EKG #1 EKG attestation: Yes I reviewed and interpreted this EKG. EKG shows normal: sinus rhythm Rate: normal Rhythm: NSR Carlin/QRS: normal T wave inversions noted in: I Interpretation: unchanged when compared to prior tracing (date)
[2018-02-20] MEDS: methylPREDNISolone 125 MG/2 ML VIAL IVP ONE ×2 (07:45→14:10)
[2018-02-20] MEDS: Ipratropium/Albuterol Neb 3 ML IH ONE ×2 (07:46→07:55)
[2018-02-20 07:51] LABS: Basophils % 0.6 %; Eosinophils # 0.2 K/mcL (0.0-0.6); Eosinophils % 4.3 %; Hematocrit 37.4 % (35.3-44.9); Hemoglobin 12.7 g/dL (11.5-15.4); Immature Granulocytes % 0.4 % (0-4); Lymphocytes # 0.8 K/mcL (0.6-4.6); Lymphocytes % 17.8 %; Mean Corpuscular Hemoglobin 29.2 pg (28.0-33.3); Monocytes # 0.7 K/mcL (0.0-1.3); Monocytes % 15.7 %; Neutrophils # 2.8 K/mcL (1.6-8.9); Platelet Count 149 K/mcL (140-400); Red Blood Count 4.35 M/mcL (3.82-4.97); Red Cell Distribution Width 14.3 % (11.5-14.5); Segmented Neutrophils % 61.2 %
[2018-02-20 08:12] LABS: Calcium 9.9 mg/dL (8.6-10.3)
[2018-02-20 08:19] LABS: Troponin I 0.05 ng/mL (< 0.04)
[2018-02-20] MEDS: Aspirin 81 MG TAB.CHEW PO ONE ×2 (08:34→14:10)
--- NOTE | 2018-02-20 08:38 | Emergency Department Note ---
Disposition Clinical Impression: ACS (acute coronary syndrome) Disposition: Admitted As Inpatient Forms: ED Satisfaction Letter General Adult HPI - General Chief complaint: ED Upper Respiratory Infection Stated complaint: cold symptoms Time Seen by Provider: 02/20/18 06:46 Source: patient, family Mode of arrival: private vehicle Limitations: no limitations - History of Present Illness Location: other ("No pain, just coughing a lot") Pain Scale: 0 Improves with: nothing Worsens with: other (coughing) Associated symptoms: Reports: cough, diaphoresis ("This AM awoke very sweaty"), fever/chills. Denies: confusion, chest pain, headaches, loss of appetite, malaise, nausea/vomiting, rash, seizure, shortness of breath, syncope, weakness Treatments Prior to Arrival: none - Related Data Home Medications Medication Instructions Recorded Confirmed Aspirin [Adult Low Dose Aspirin EC] 81 mg PO DAILY 11/28/15 03/26/17 Atorvastatin Calcium [Lipitor] 80 mg PO HS 11/28/15 03/26/17 Carbidopa/Levodopa 25/100 [Sinemet 2 each PO TID 11/28/15 03/26/17 25/100] Carvedilol [Coreg] 25 mg PO BID 11/28/15 03/26/17 Citalopram Hydrobromide 40 mg PO DAILY 11/28/15 03/26/17 [Citalopram HBr] Furosemide [Lasix] 40 mg PO DAILY 11/28/15 03/26/17 GlipiZIDE XL (24 HR) [Glucotrol XL] 10 mg PO DAILY 11/28/15 03/26/17 Iron Polysaccharide Complex 150 mg PO BID 11/28/15 03/26/17 [Ferric X-150] Losartan Potassium [Cozaar] 100 mg PO DAILY 11/28/15 03/26/17 Ropinirole HCl [Requip] 2 mg PO HS 11/28/15 03/26/17 hydrALAZINE [HydrALAZINE] 25 mg PO BID 11/28/15 03/26/17 metFORMIN [Glucophage] 500 mg PO TID 11/28/15 03/26/17 Omeprazole [PriLOSEC] 20 mg PO DAILY 03/26/17 03/26/17 Previous Rx's Medication Instructions Recorded GuaiFENesin ER [Mucinex] 600 mg PO BID #20 tbbp.12hr 03/28/17 Oxygen 2 l IN CONT #1 each 03/28/17 amLODIPine [Norvasc] 5 mg PO DAILY #30 tablet 03/28/17 Allergies Allergy/AdvReac Type Severity Reaction Status Date / Time No Known Allergies Allergy Verified 02/20/18 06:44 Constitutional: Reports: fever, chills, night sweats ("last night, but I think I had a fever"). Denies: weakness, weight change Eyes: Denies: eye pain, eye discharge, vision change ENT ED: Reports: congestion. Denies: ear pain, throat pain, dysphagia Cardiovascular: Denies: chest pain, palpitations, dyspnea on exertion, orthopnea , edema, syncope Respiratory: Reports: cough. Denies: dyspnea, wheezes, hemoptysis, stridor Past Medical History - Past Medical History Medical history: Reports: COPD, coronary artery disease, diabetes Surgical history: Reports: pacemaker/AICD, other Psychiatric history: Reports: depression INFORMATION LEAD history: Reports: no INFORMATION LEAD history - Social History Smoking Status: Current every day smoker Smokeless Tobacco Status: No Alcohol use: Reports: none Drug use: Reports: none Physical Exam - General Limitations: no limitations General appearance: alert, in no apparent distress Course - Reevaluation(s) Reevaluation #1: Attestation note I examined this patient and my medical decision-making was reviewed with the emergency medicine resident. I agree with the documented findings, disposition and treatment plan as described except to the extent set forth below. Patient seen with physician pharmacy innovation assistant Yael Acuna, Please see a copy of his note for details of the H&P, ED evaluation, management and disposition. I have independently evaluated the patient and confirmed appropriate portions of the history and physical exam. Briefly: 62-year-old female presents with URI and cold symptoms history of cardiac risk factors EKG shows no acute ischemic changes chest x-ray negative however troponin is critically elevated at 0.05. Patient's renal function is normal and 2 with 3 prior troponin assays were negative on prior visits. Patient will be admitted with acute coronary syndrome. Patient will get aspirin. Provided 30 minutes critical care service for this patient. Admission disposition pending Time: 08:36 Vital Signs Temperature 98.2 F 02/20/18 06:42 Pulse Rate 84 02/20/18 06:42 Respiratory Rate 20 02/20/18 06:42 Blood Pressure 190/82 02/20/18 06:42 O2 Sat by Pulse Oximetry 96 02/20/18 06:42 Temperature 98.2 F 02/20/18 06:42 Pulse Rate 68 02/20/18 07:43 Respiratory Rate 20 02/20/18 07:43 Blood Pressure 127/88 02/20/18 06:51 O2 Sat by Pulse Oximetry 95 02/20/18 07:43 Oxygen Delivery Oxygen Delivery Room Air Medical Decision Making - Lab Data Result diagrams: 02/20/18 07:35 02/20/18 07:35 Lab Results 02/20/18 02/20/18 02/20/18 Range/Units 07:35 07:35 07:35 WBC 4.7 (4.3-11.1) K/mcL RBC 4.35 (3.82-4.97) M/mcL Hgb 12.7 (11.5-15.4) g/dL Hct 37.4 (35.3-44.9) % MCV 86.0 (83.0-100.0) fL MCH 29.2 (28.0-33.3) pg MCHC 34.0 (31.6-35.5) g/dL RDW 14.3 (11.5-14.5) % Plt Count 149 (140-400) K/mcL MPV 11.0 (9.4-12.4) fL Immature Gran % 0.4 (0-4) % Seg Neutrophils % 61.2 % Lymphocytes % 17.8 % Monocytes % 15.7 % Eosinophils % 4.3 % Basophils % 0.6 % Neutrophils # 2.8 (1.6-8.9) K/mcL Lymphocytes # 0.8 (0.6-4.6) K/mcL Monocytes # 0.7 (0.0-1.3) K/mcL Eosinophils # 0.2 (0.0-0.6) K/mcL Basophils # 0.0 (0.0-0.2) K/mcL Sodium 140 (136-145) mEq/L Potassium 4.0 (3.5-5.1) mEq/L Chloride 109 H (98-107) mEq/L Carbon Dioxide 27 (23-29) mEq/L BUN 13 (8-23) mg/dL Creatinine 1.14 (0.60-1.20) mg/dL Est GFR ( Amer) 58 L (> 60) Est GFR (Non-Af Amer) 48 L (> 60) BUN/Creatinine Ratio 11 (6-26) Glucose 61 L (70-105) mg/dL Calculated Osmolality 288 (280-300) Lactic Acid 1.0 (0.5-2.2) mmol/L Calcium 9.9 (8.6-10.3) mg/dL Troponin I 0.05 H* (< 0.04) ng/mL B-Natriuretic Peptide (Less than 100) pg/mL 02/20/18 Range/Units 07:35 WBC (4.3-11.1) K/mcL RBC (3.82-4.97) M/mcL Hgb (11.5-15.4) g/dL Hct (35.3-44.9) % MCV (83.0-100.0) fL MCH (28.0-33.3) pg MCHC (31.6-35.5) g/dL RDW (11.5-14.5) % Plt Count (140-400) K/mcL MPV (9.4-12.4) fL Immature Gran % (0-4) % Seg Neutrophils % % Lymphocytes % % Monocytes % % Eosinophils % % Basophils % % Neutrophils # (1.6-8.9) K/mcL Lymphocytes # (0.6-4.6) K/mcL Monocytes # (0.0-1.3) K/mcL Eosinophils # (0.0-0.6) K/mcL Basophils # (0.0-0.2) K/mcL Sodium (136-145) mEq/L Potassium (3.5-5.1) mEq/L Chloride (98-107) mEq/L Carbon Dioxide (23-29) mEq/L BUN (8-23) mg/dL Creatinine (0.60-1.20) mg/dL Est GFR ( Amer) (> 60) Est GFR (Non-Af Amer) (> 60) BUN/Creatinine Ratio (6-26) Glucose (70-105) mg/dL Calculated Osmolality (280-300) Lactic Acid (0.5-2.2) mmol/L Calcium (8.6-10.3) mg/dL Troponin I (< 0.04) ng/mL B-Natriuretic Peptide 752 H (Less than 100) pg/mL
[2018-02-20] MEDS ORDERED: Azithromycin 500 MG in D5% in Water 250 ML IVPB ONE (10:08)
[2018-02-20] MEDS ORDERED: cefTRIAXone 1,000 MG in Water for inj. (sterile) 20 ML 10 ML IVP ONE ×2 (10:08→13:00)
[2018-02-20] MEDS ORDERED: Naloxone 0.4 MG/ML INJ IVP PRN (12:56)
--- NOTE | 2018-02-20 15:43 | Cardiology Consult Note ---
<Amado Heard - Last Filed: 02/20/18 15:39> Date of Encounter: 02/20/18 Time of Encounter: 15:00 Assessment and Plan (1) Elevated troponin Current Visit: Yes Status: Acute Mild troponin elevation in the setting of bronchitis. H/o CAD s/p PCI in 2008. EKG without acute ST changes. Trop 0.05. Denies chest pain. Continue to trend troponin and check TTE. (2) CAD (coronary artery disease) Current Visit: Yes Status: Acute H/o OR and PCI in 2008. Stress test negative in 2012. TTE 03/2017- Normal LV systolic function, LVEF 60%. Severe concentric left ventricular hypertrophy. Moderate left ventricular diastolic dysfunction. Normal right ventricular size and function. A device lead was visualized in the right atrium and right ventricle. Moderately dilated left atrium. No significant valvular dysfunction. Mild pulmonary hypertension. Estimated RVSP = [address] cast. Continue asa, statin, and bb. Qualifiers: Coronary Disease-Associated Artery/Lesion type: [place] artery [place] vs. transplanted heart: [place] heart Associated angina: without angina Qualified Code(s): I25.10 - Atherosclerotic heart disease of [place] coronary artery without angina pectoris (3) Chronic diastolic (congestive) heart failure Current Visit: Yes Status: Acute H/o diastolic CHF. C/o some mild abdominal distension. Denies weight gain or edema. BNP elevated. CXR negative. I will give one time dose of lasix for mild acute on chronic diastolic CHF. Strict I&O and daily weights. Low sodium diet. (4) HTN (hypertension) Current Visit: No Status: Chronic B/p elevated. Add home medications and restart as needed. Qualifiers: Hypertension type: essential hypertension Qualified Code(s): I10 - Essential (primary) hypertension Discussion w patient/family: The assessment and plan as outlined above was discussed with the patient and/or family members who expressed understanding and agreement. All questions were answered. Thank you for involving us in the care of your patient. Please call with any questions. History of Present Illness Consult date: 02/20/18 Consult reason: Elevated troponin. Chief complaint: difficulty breathing, congestion, possible fever for 4 days History of present illness: Ms. Dinero is a 62 year old female with past medical history of CAD s/p PCI in 2008, PPM, and chronic diastolic CHF. She presents with the c/o 5 days of cold like symptoms, difficulty breathing at times, and waking up in a sweat. Cardiology consulted for troponin elevation at 0.05. She denies chest pain. Past Med Surg Social Fam HX - Past Medical History Medical history: cardiomyopathy, COPD, coronary artery disease, diabetes, hypertension, thyroid disease, other Psychiatric history: depression - Past Surgical History Surgical History: pacemaker/AICD, other - Social History Smoking Status: Current every day smoker Packs per day: 1 Smokeless Tobacco Status: No Alcohol use: none Drug use: none - Family History Father Living Status: Hx Family Cardiac Disorders: No Hx Family Respiratory Disorders: No Hx Family Cancer: No Hx Family GI Disorders: No Hx Family Endocrine Disorder: No Hx Family Neuromuscular Disorders: No Hx Family Neurologic Disorders: No Hx Family HEENT Disorders: No Hx Family Autoimmune Disorders: No Mother Living Status: Cause of : CHF Hx Family Cardiac Disorders: Yes Hx Family Respiratory Disorders: No Hx Family Cancer: No Hx Family GI Disorders: No Hx Family Endocrine Disorder: Yes (DM) Hx Family Neuromuscular Disorders: No Hx Family Neurologic Disorders: No Hx Family HEENT Disorders: No Hx Family Autoimmune Disorders: No Medications and Allergies Aspirin [Adult Low Dose Aspirin EC] 81 mg PO DAILY 11/28/15 [History] Atorvastatin Calcium [Lipitor] 80 mg PO HS 11/28/15 [History] Carbidopa/Levodopa 25/100 [Sinemet 25/100] 2 each PO TID 11/28/15 [History] Carvedilol [Coreg] 25 mg PO BID 11/28/15 [History] Citalopram Hydrobromide [Citalopram HBr] 40 mg PO DAILY 11/28/15 [History] Furosemide [Lasix] 40 mg PO DAILY 11/28/15 [History] GlipiZIDE XL (24 HR) [Glucotrol XL] 10 mg PO DAILY 11/28/15 [History] Iron Polysaccharide Complex [Ferric X-150] 150 mg PO BID 11/28/15 [History] Losartan Potassium [Cozaar] 100 mg PO DAILY 11/28/15 [History] Ropinirole HCl [Requip] 2 mg PO HS 11/28/15 [History] hydrALAZINE [HydrALAZINE] 25 mg PO BID 11/28/15 [History] metFORMIN [Glucophage] 500 mg PO TID 11/28/15 [History] Omeprazole [PriLOSEC] 20 mg PO DAILY 03/26/17 [History] GuaiFENesin ER [Mucinex] 600 mg PO BID #20 tbbp.12hr 03/28/17 [Rx] Oxygen 2 l IN CONT #1 each 03/28/17 [Rx] amLODIPine [Norvasc] 5 mg PO DAILY #30 tablet 03/28/17 [Rx] Cholecalciferol (D-3) [Vitamin D] 2,000 unit PO DAILY 02/20/18 [History] Cinacalcet [Sensipar] 30 mg PO DAILY 02/20/18 [History] 3 Allergy/AdvReac Type Severity Reaction Status Date / Time No Known Allergies Allergy Verified 02/20/18 08:56 All Systems Review: The remainder of the systems were reviewed and are negative Physical Examination Vital Signs, Last 4 Hours Temp Pulse Resp BP Pulse Ox 02/20/18 13:59 98.2 F 73 17 153/76 93 02/20/18 12:22 67 18 182/72 98 General: Conversant, No Apparent Distress HEENT: Atraumatic, Normocephaly, Mucus Membranes Moist Neck: No JVD, Normal carotid pulses Cardiac: Reg Rate and Rhythm, Normal S1 and S2, No Murmur Lungs: Other (respirations easy, no distress noted. Rhonci scattered through-out ) Neuro: Alert and responsive, No focal deficits noted Abdomen: Soft, Non-Tender Skin: No rashes noted on visualized skin Musculoskeletal: No Chest Wall Tenderness Extremities: No Clubbing, No Cyanosis, No Edema, Normal Pulses Results 02/20/18 07:35 02/20/18 07:35 Lab Results 02/20/18 13:42 Troponin I 0.03 Consult Discharge Plan - Plan Referrals: Sumit Quevedo MD [Partnered Physician] - 02/25/18 10:00 am Fernando Soto DO [Primary Care Provider] - 02/27/18 10:15 am <Wilbert Beckham - Last Filed: 02/20/18 22:01> Date of Encounter: 02/20/18 Time of Encounter: 18:00 - Attending Attestation I have personally performed a face to face evaluation on this patient. I have reviewed and agree with the care plan. History and Exam by me shows: CC: Shortness of breath Pt reports five or six day history of upper respiratory tract infection, with mildly sore throat, stuffy nose, cough, initially non productive, then productive of white sputum, with episodes of low grade fever and chills. She notes some shortness of breath and wheezing with coughing. She had decreased smoking due to cough. She denies chest pain, pressure or squeezing sensation consistent with previous anginal symptoms. PMH: reviewed PE: agree with findings above, now also demostrates mild bilateral expiratory wheezes. IMP; 1. Troponin elevation, mild, no acute ischemic changes on EKG, of unclear significance, most likely due to demand ischemia, will continue to trend, echocardiogram to rule out new wall motion abnormalites. 2. Acute on chronic diastolic heart failure, has responded to gentle diuresis, pt reports is breathing easier, will reassess with echocardiogram 3. CAD - mild single vessel CAD, post PCI 2008, no reoccurrence of anginal symptoms, last stress no ischemia 2014. 4. Acute bronchitis: improving with resp tx. 5. Tobacco abuse: discussed smoking cessation, pt declines pharmacologic support. Further recommendations pending cardiac imaging and sequential cardiac enzemes. Assessment and Plan Discussion w patient/family: The assessment and plan as outlined above was discussed with the patient and/or family members who expressed understanding and agreement. All questions were answered. Thank you for involving us in the care of your patient. Please call with any questions. History of Present Illness History of present illness: Ms. Dinero is a 62 year old female All Systems Review: The remainder of the systems were reviewed and are negative Physical Examination Vital Signs, Last 4 Hours Temp Pulse Resp BP Pulse Ox 02/20/18 20:48 20 92 02/20/18 18:54 98.3 F 93 20 154/70 95 Results 02/20/18 07:35 02/20/18 07:35 Lab Results 02/20/18 02/20/18 13:42 19:21 Troponin I 0.03 0.03
[2018-02-20] MEDS ORDERED: Furosemide 20 MG/2 ML VIAL IVP ONE (15:58)
[2018-02-20] MEDS: Ipratropium/Albuterol Neb 3 ML IH SCH ×3 (16:16→23:49)
[2018-02-20] MEDS: amLODIPine 5 MG TABLET PO SCH (17:31)
[2018-02-20] MEDS ORDERED: D5% in Water 1,000 ML IVC PRN (20:20)
[2018-02-20] MEDS ORDERED: Dextrose Gel 15 GM/37.5 ML TUBE PO PRN ×2 (20:20)
[2018-02-20] MEDS ORDERED: *HR* Dextrose 50 % in Water (Syg) 50 ML SYRINGE IVP PRN (20:20)
[2018-02-20] MEDS: Insulin LISPRO 300 UNITS/3 ML VIAL SQ SCH (20:42)
--- NOTE | 2018-02-20 21:37 | Internal Med History&Physical ---
Date of Encounter: 02/20/18 Time of Encounter: 22:00 Internal Medicine - H&P: HPI Chief complaint: cough History of present illness: Ms. Dinero is a 62 year old female patient of CAD, COPD and was complaining of cough. Patient was coughing last 4-5 days. Patient was cough productive of sputum. Patient denies any hemoptysis. Patient denies fever, chills or rigors. Patient notes sometimes she uses home oxygen. Patient also notes that she is noncompliant with her CPAP machine. Patient not she is taking medications for her parathyroid gland. At this time patient denies chest pain shortness of breath or palpitations. Has no pain, nausea and vomiting. She denies melena or hematochezia. She denies dysuria or diarrhea. Patient to be admitted for further evaluation. Patient voices no other concerns. Past Med Surg Social Fam HX - Past Medical History Medical history: cardiomyopathy (pacemaker), COPD, coronary artery disease (2 stents placed in 2008), diabetes, hypertension, thyroid disease, other ( [place]) Psychiatric history: depression - Past Surgical History Surgical History: pacemaker/AICD, other - Social History Smoking Status: Current every day smoker Packs per day: 1 Smokeless Tobacco Status: No Alcohol use: none Drug use: none - Family History Father Living Status: Hx Family Cardiac Disorders: No Hx Family Respiratory Disorders: No Hx Family Cancer: No Hx Family GI Disorders: No Hx Family Endocrine Disorder: No Hx Family Neuromuscular Disorders: No Hx Family Neurologic Disorders: No Hx Family HEENT Disorders: No Hx Family Autoimmune Disorders: No Mother Living Status: Cause of : CHF Hx Family Cardiac Disorders: Yes Hx Family Respiratory Disorders: No Hx Family Cancer: No Hx Family GI Disorders: No Hx Family Endocrine Disorder: Yes (DM) Hx Family Neuromuscular Disorders: No Hx Family Neurologic Disorders: No Hx Family HEENT Disorders: No Hx Family Autoimmune Disorders: No Internal Medicine - H&P: Meds Aspirin [Adult Low Dose Aspirin EC] 81 mg PO DAILY 11/28/15 [History] Atorvastatin Calcium [Lipitor] 80 mg PO HS 11/28/15 [History] Carbidopa/Levodopa 25/100 [Sinemet 25/100] 2 each PO TID 11/28/15 [History] Carvedilol [Coreg] 25 mg PO BID 11/28/15 [History] Citalopram Hydrobromide [Citalopram HBr] 40 mg PO DAILY 11/28/15 [History] Furosemide [Lasix] 40 mg PO DAILY 11/28/15 [History] GlipiZIDE XL (24 HR) [Glucotrol XL] 10 mg PO DAILY 11/28/15 [History] Iron Polysaccharide Complex [Ferric X-150] 150 mg PO BID 11/28/15 [History] Losartan Potassium [Cozaar] 100 mg PO DAILY 11/28/15 [History] Ropinirole HCl [Requip] 2 mg PO HS 11/28/15 [History] hydrALAZINE [HydrALAZINE] 25 mg PO BID 11/28/15 [History] metFORMIN [Glucophage] 500 mg PO TID 11/28/15 [History] Omeprazole [PriLOSEC] 20 mg PO DAILY 03/26/17 [History] GuaiFENesin ER [Mucinex] 600 mg PO BID #20 tbbp.12hr 03/28/17 [Rx] Oxygen 2 l IN CONT #1 each 03/28/17 [Rx] amLODIPine [Norvasc] 5 mg PO DAILY #30 tablet 03/28/17 [Rx] Cholecalciferol (D-3) [Vitamin D] 2,000 unit PO DAILY 02/20/18 [History] Cinacalcet [Sensipar] 30 mg PO DAILY 02/20/18 [History] 3 Allergy/AdvReac Type Severity Reaction Status Date / Time No Known Allergies Allergy Verified 02/20/18 08:56 All Systems PM: A 10-system review of systems was performed and is negative for pertinent findings except as documented above in the HPI. Review of systems: All systems reviewed and negative except as mentioned in history of present illness - Constitutional Vitals: Temp Pulse Resp BP Pulse Ox 98.3 F 93 20 154/70 92 02/20/18 18:54 02/20/18 18:54 02/20/18 20:48 02/20/18 18:54 02/20/18 20:48 Vital signs as above Gen.: On process, cooperative, and speaking full sentences HEENT: Atraumatic, normocephalic, truncal Zantac, peripheral, there is no scleral icterus Neck: No JVD, no pain to palpation, full range of motion Heart: Normal S1-S2 Lungs: Diminished breath sounds at the bases, some expiratory wheeze Musculoskeletal: Patient moves all 4 extremities freely, pending the palpation of large joints Neuro: Nonfocal,, Psychiatric: Normal Skin: Intact with no rash Internal Med - H&P Results - Labs CBC & Chem 7: 02/20/18 07:35 02/20/18 07:35 Labs: Cardiac Enzymes 02/20/18 02/20/18 Range/Units 13:42 19:21 Troponin I 0.03 0.03 (< 0.04) ng/mL - Assessment and plan (1) Elevated troponin Current Visit: Yes Status: Acute Assessment and plan: Patient currently denies chest pain. Likely demand ischemia. Patient has known history of coronary artery disease Apreciate cardiology consultation Continue current cardiac medications, cycle serial troponin, continuous impress associate (2) Pulmonary nodule Current Visit: Yes Status: Acute Assessment and plan: Will need CT chest for further evaluation (3) COPD (chronic obstructive pulmonary disease) Current Visit: Yes Status: Chronic Assessment and plan: Patient with cough, sputum production. Chest x-ray no evidence of pneumonia at this time Empiric parenteral antibiotics, sputum culture if able, pink steroids for wheezing Check respiratory viral panel, strep throat antigen, supplemental oxygen as needed Qualifiers: COPD type: unspecified COPD Qualified Code(s): J44.9 - Chronic obstructive pulmonary disease, unspecified (4) DVT prophylaxis Current Visit: Yes Status: Acute Assessment and plan: SCDs, heparin subcutaneous for DVT prophylaxis - Time Spent With Patient Total time spent is greater than 50% in coordination of care (as documented) at patient's floor/unit and/or counseling patient:
[2018-02-20] MEDS ORDERED: Insulin DETEMIR 100 UNIT/ML X5UNITS SQ ONE (21:47)
[2018-02-20] MEDS: Carbidopa/Levodopa 25/100 TABLET PO SCH ×2 (22:23→22:29)
[2018-02-20] MEDS: *HR* Heparin 5,000 UNIT/ML VIAL SQ SCH (22:29)
[2018-02-20] MEDS: rOPINIRole 1 MG TABLET PO SCH (22:29)
[2018-02-21 01:01] LABS: Basophils % 0.1 %; Hematocrit 34.7 % (35.3-44.9); Hemoglobin 11.9 g/dL (11.5-15.4); Immature Granulocytes % 0.8 % (0-4); Lymphocytes # 0.5 K/mcL (0.6-4.6); Lymphocytes % 6.3 %; Mean Corpuscular HGB Conc 34.3 g/dL (31.6-35.5); Mean Corpuscular Hemoglobin 28.9 pg (28.0-33.3); Mean Corpuscular Volume 84.2 fL (83.0-100.0); Mean Platelet Volume 11.4 fL (9.4-12.4); Monocytes # 0.5 K/mcL (0.0-1.3); Monocytes % 6.1 %; Platelet Count 156 K/mcL (140-400); Red Blood Count 4.12 M/mcL (3.82-4.97); Red Cell Distribution Width 14.1 % (11.5-14.5); Segmented Neutrophils % 86.7 %
[2018-02-21 01:03] LABS: Neutrophils # 6.3 K/mcL (1.6-8.9)
[2018-02-21 01:06] LABS: INR 1.2; Prothrombin Time 12.5 Seconds (9.4-12.1)
[2018-02-21 01:21] LABS: Alanine Aminotransferase < 3 Units/L (7-52); Albumin 4.2 g/dL (3.5-5.7); Albumin/Globulin Ratio 1.6 (1.1-2.2); Alkaline Phosphatase 99 Units/L (34-104); Aspartate Amino Transferase 11 Units/L (13-39); BUN/Creatinine Ratio 17 (6-26); Bilirubin,Total 0.5 mg/dL (0.3-1.0); Blood Urea Nitrogen 24 mg/dL (8-23); Calcium 10.7 mg/dL (8.6-10.3); Carbon Dioxide 25 mEq/L (23-29); Chloride 98 mEq/L (98-107); Chol/HDL Ratio 3.1 (0-4.9); Cholesterol 120 mg/dL (< 200); Globulin 2.7 g/dL (2.4-3.5); Glucose 376 mg/dL (70-105); HDL Cholesterol 39 mg/dL (40-59); LDL Cholesterol,Calculated 59 mg/dL (0-99); Magnesium 1.4 mg/dL (1.6-2.6); Osmolality,Calculated 295 (280-300); Potassium 4.3 mEq/L (3.5-5.1); Sodium 133 mEq/L (136-145); Total Protein 6.9 g/dL (6.4-8.9); Triglycerides 112 mg/dL (< 150); eGFR For African Americans 46 (> 60); eGFR For Non-African Americans 38 (> 60)
[2018-02-21] MEDS: Ipratropium/Albuterol Neb 3 ML IH SCH ×6 (03:26→23:32)
[2018-02-21] MEDS ORDERED: MethylPREDNISolone 40 MG/ML VIAL IVP SCH (06:00)
[2018-02-21] MEDS: *HR* Heparin 5,000 UNIT/ML VIAL SQ SCH ×3 (06:32→20:39)
[2018-02-21] MEDS: Doxycycline 100 MG in 0.9 % Sodium Chloride Mini Bag 100 ML IVPB SCH ×2 (06:32→16:37)
[2018-02-21] MEDS: cefTRIAXone 2,000 MG in Water for inj. (sterile) 20 ML 20 ML IVPB SCH (07:39)
[2018-02-21] MEDS: Aspirin Enteric Coated 81 MG Tablet PO SCH (07:40)
[2018-02-21] MEDS: Iron Polysaccharide Complex 150 MG CAPSULE PO SCH ×2 (07:40→20:39)
[2018-02-21] MEDS: Furosemide 40 MG TABLET PO SCH (07:40)
[2018-02-21] MEDS: amLODIPine 5 MG TABLET PO SCH (07:40)
[2018-02-21] MEDS: hydrALAZINE 25 MG TABLET PO SCH ×2 (07:40→20:39)
[2018-02-21] MEDS: Carbidopa/Levodopa 25/100 TABLET PO SCH ×3 (07:40→20:39)
[2018-02-21] MEDS: Cholecalciferol (D-3) 1,000 UNIT TABLET PO SCH (07:40)
[2018-02-21] MEDS: Insulin LISPRO 300 UNITS/3 ML VIAL SQ SCH ×4 (08:09→20:40)
[2018-02-21 08:45] LABS: Adenovirus Not Detected (Not Detect); Bordetella Pertussis Not Detected (Not Detect); Chlamydophila pneumoniae Not Detected (Not Detect); Coronavirus 229E Not Detected (Not Detect); Coronavirus HKU1 Not Detected (Not Detect); Coronavirus NL63 Not Detected (Not Detect); Coronavirus OC43 Not Detected (Not Detect); Human Metapneumovirus Not Detected (Not Detect); Human Rhinovirus/Enterovirus Not Detected (Not Detect); Influenza A Subtype 2009 H1 Not Detected (Not Detect); Influenza A Untypeable Not Detected (Not Detect); Influenza B Not Detected (Not Detect); Mycoplasma pneumoniae Not Detected (Not Detect); Parainfluenza Virus 1 Not Detected (Not Detect); Parainfluenza Virus 2 Not Detected (Not Detect); Parainfluenza Virus 3 Not Detected (Not Detect); Parainfluenza Virus 4 Not Detected (Not Detect); Respiratory Syncytial Virus ***DETECTED*** (Not Detect)
--- NOTE | 2018-02-21 11:44 | Cardiology Progress Note ---
Date of Encounter: 02/21/18 Time of Encounter: 11:30 Assessment and Plan (1) Elevated troponin Current Visit: Yes Status: Acute Mild troponin elevation in the setting of bronchitis. Troponin 0.05, 0.03 x3. Demand ischemia, non-diagnostic of ACS. H/o CAD s/p PCI in 2008. EKG without acute ST changes. Denies chest pain. TTE pending. If no acute change, no further testing from cardiac standpoint. (2) CAD (coronary artery disease) Current Visit: No Status: Chronic H/o [place] and PCI in 2008. Stress test negative in 2012. TTE 03/2017- Normal LV systolic function, LVEF 60%. Severe concentric left ventricular hypertrophy. Moderate left ventricular diastolic dysfunction. Normal right ventricular size and function. A device lead was visualized in the right atrium and right ventricle. Moderately dilated left atrium. No significant valvular dysfunction. Mild pulmonary hypertension. Estimated RVSP = [address] cast. Continue asa, statin, and bb. Qualifiers: Coronary Disease-Associated Artery/Lesion type: [place] artery [place] vs. transplanted heart: [place] heart Associated angina: without angina Qualified Code(s): I25.10 - Atherosclerotic heart disease of [place] coronary artery without angina pectoris (3) Chronic diastolic (congestive) heart failure Current Visit: Yes Status: Acute H/o diastolic CHF. C/o some mild abdominal distension. C/o abdominal distension yesterday and mild increase BNP. One dose lasix IV given 02/20. Increase in Scr today. Agree with holding lasix. Give gentle IV fluid if needed. Low sodium diet stressed. Euvolemic on exam today. Strict I&O and daily weights. Low sodium diet. (4) HTN (hypertension) Current Visit: No Status: Chronic B/p continues to be elevated. Increase norvasc. Qualifiers: Hypertension type: essential hypertension Qualified Code(s): I10 - Essential (primary) hypertension Discussion w patient/family: The assessment and plan as outlined above was discussed with the patient and/or family members who expressed understanding and agreement. All questions were answered. Thank you for involving us in the care of your patient. Please call with any questions. Subjective Principal diagnosis: Bronchitis, elevated troponin Interval history: Self denies chest pain. Reports that abdominal distension is better after IV lasix. Reports she still has congestion and cough. Objective Vital Signs, Last 4 Hours Temp Pulse Resp BP Pulse Ox 02/21/18 10:40 98.2 F 80 16 150/71 90 02/21/18 09:12 145/72 02/21/18 08:02 17 95 General: Conversant, No Apparent Distress HEENT: Atraumatic, Normocephaly, Mucus Membranes Moist Neck: No JVD, Normal carotid pulses Cardiac: Reg Rate and Rhythm, Normal S1 and S2, No Murmur Lungs: Other (Rhonci in upper airways, horsness noted) Neuro: Alert and responsive, No focal deficits noted Abdomen: Soft, Non-Tender Skin: No rashes noted on visualized skin Musculoskeletal: No Chest Wall Tenderness Extremities: No Clubbing, No Cyanosis, No Edema, Normal Pulses Results 02/21/18 00:35 02/21/18 00:35 Lab Results 02/21/18 02/21/18 02/21/18 00:35 00:35 00:35 WBC 7.3 D Hgb 11.9 Hct 34.7 L Plt Count 156 INR 1.2 Sodium Potassium Chloride Carbon Dioxide BUN Creatinine Glucose Calcium Magnesium Total Bilirubin AST ALT Alkaline Phosphatase Troponin I 0.03 02/21/18 00:35 WBC Hgb Hct Plt Count INR Sodium 133 L Potassium 4.3 Chloride 98 Carbon Dioxide 25 BUN 24 H Creatinine 1.40 H Glucose 376 H Calcium 10.7 H Magnesium 1.4 L Total Bilirubin 0.5 AST 11 L ALT < 3 L Alkaline Phosphatase 99 Troponin I - Imaging and Cardiology Echo: pending, report reviewed Consult Discharge Plan - Plan Referrals: Sumit Quevedo MD [Partnered Physician] - 02/25/18 10:00 am Fernando Soto DO [Primary Care Provider] - 02/27/18 10:15 am
[2018-02-21] MEDS ORDERED: 0.9 % Sodium Chloride 500 ML ONE (11:58)
[2018-02-21] MEDS ORDERED: 0.9 % Sodium Chloride 1,000 ML IVC SCH (12:00)
--- NOTE | 2018-02-21 12:04 | Internal Med Progress Note ---
Date of Encounter: 02/21/18 Time of Encounter: 12:02 - Assessment and plan (1) HEMANTH (acute kidney injury) Current Visit: Yes Status: Acute Assessment and plan: 1 patient had increase creatinine 1.40 it appears her baseline is 1-1.2. Patient did receive IV Lasix-she does not appear to be fluid overloaded at this time. We will hold Lasix for now and give a gentle IV fluid 0.9 normal saline 1 Recheck creatinine in a.m. (2) COPD (chronic obstructive pulmonary disease) Current Visit: Yes Status: Chronic Assessment and plan: No wheezing noted at this time continues up cough with sputum production describes as clear. We will obtain sputum culture. Chest x-ray no evidence of pneumonia at this time respiratory panel was negative Continue with antibiotics, steroids oxygen as needed I did encourage patient to stop smoking offer patient a nicotine patch which she agreed Qualifiers: COPD type: unspecified COPD Qualified Code(s): J44.9 - Chronic obstructive pulmonary disease, unspecified (3) Elevated troponin Current Visit: Yes Status: Acute Assessment and plan: Patient currently denies chest pain. Likely demand ischemia. Patient has known history of coronary artery disease Cardiology was consulted cardiac echo completed which did reveal preserved EF severe LVH which was seen in previous echo 2017. Cardiology recommending better blood pressure control Norvasc was increased. Cardiology will see patient as outpatient We will continue with cardiac monitoring (4) Pulmonary nodule Current Visit: Yes Status: Acute Assessment and plan: Will need CT chest for further evaluation-radiology recommending CT of chest with contrast however at this time patient creatinine is elevated. We will defer at this time until creatinine is improved (5) DVT prophylaxis Current Visit: Yes Status: Acute Assessment and plan: SCDs, heparin subcutaneous for DVT prophylaxis - Time Spent With Patient Total time spent is greater than 50% in coordination of care (as documented) at patient's floor/unit and/or counseling patient: - Subjective Interval history: Patient is new to me, I reviewed records. I examined patient at bedside Denies any CP SOB has cough with sputum clear production. States she feels better - Constitutional Vitals: Temp Pulse Resp BP Pulse Ox 98.2 F 80 16 150/71 90 02/21/18 10:40 02/21/18 10:40 02/21/18 11:30 02/21/18 10:40 02/21/18 11:30 Internal Medicine: Result - Labs CBC & Chem 7: 02/21/18 00:35 02/21/18 00:35 Labs: Short CBC 02/21/18 Range/Units 00:35 WBC 7.3 D (4.3-11.1) K/mcL Hgb 11.9 (11.5-15.4) g/dL Hct 34.7 L (35.3-44.9) % Plt Count 156 (140-400) K/mcL Neutrophils # 6.3 (1.6-8.9) K/mcL BMP 02/21/18 00:35 Sodium 133 L Potassium 4.3 Chloride 98 Carbon Dioxide 25 BUN 24 H Creatinine 1.40 H Glucose 376 H Calcium 10.7 H Cardiac Enzymes 02/21/18 Range/Units 00:35 Troponin I 0.03 (< 0.04) ng/mL Liver Function 02/21/18 Range/Units 00:35 Total Bilirubin 0.5 (0.3-1.0) mg/dL AST 11 L (13-39) Units/L ALT < 3 L (7-52) Units/L Alkaline Phosphatase 99 (34-104) Units/L Albumin 4.2 (3.5-5.7) g/dL - ABG Interpretation ABG results: PT/INR, D-dimer PT 12.5 Seconds (9.4-12.1) H 02/21/18 00:35 Consult Discharge Plan - Plan Referrals: Sumit Quevedo MD [Partnered Physician] - 02/25/18 10:00 am Fernando Soto DO [Primary Care Provider] - 02/27/18 10:15 am
[2018-02-21] MEDS: Nicotine 14 MG PATCH.TD24 TD SCH (16:40)
[2018-02-21] MEDS: rOPINIRole 1 MG TABLET PO SCH (20:39)
[2018-02-22] MEDS: Ipratropium/Albuterol Neb 3 ML IH SCH ×6 (03:32→23:11)
[2018-02-22] MEDS: *HR* Heparin 5,000 UNIT/ML VIAL SQ SCH ×3 (05:58→21:25)
[2018-02-22] MEDS: Doxycycline 100 MG in 0.9 % Sodium Chloride Mini Bag 100 ML IVPB SCH ×2 (05:58→16:57)
[2018-02-22] MEDS: amLODIPine 5 MG TABLET PO SCH (07:59)
[2018-02-22] MEDS: Carbidopa/Levodopa 25/100 TABLET PO SCH ×3 (08:00→21:25)
[2018-02-22] MEDS: Iron Polysaccharide Complex 150 MG CAPSULE PO SCH ×2 (08:00→21:25)
[2018-02-22] MEDS: hydrALAZINE 25 MG TABLET PO SCH ×2 (08:01→21:25)
[2018-02-22] MEDS: predniSONE 20 MG TABLET PO SCH (08:01)
[2018-02-22] MEDS: Cholecalciferol (D-3) 1,000 UNIT TABLET PO SCH (08:01)
[2018-02-22] MEDS: cefTRIAXone 2,000 MG in Water for inj. (sterile) 20 ML 20 ML IVPB SCH (08:10)
[2018-02-22] MEDS: Aspirin Enteric Coated 81 MG Tablet PO SCH (08:21)
[2018-02-22] MEDS: Insulin LISPRO 300 UNITS/3 ML VIAL SQ SCH ×4 (08:40→21:26)
[2018-02-22 08:42] LABS: Basophils % 0.3 %; Eosinophils % 0.2 %; Hematocrit 39.5 % (35.3-44.9); Hemoglobin 13.6 g/dL (11.5-15.4); Immature Granulocytes % 1.1 % (0-4); Immature Platelets 4.3 % (1.1-6.1); Lymphocytes # 1.3 K/mcL (0.6-4.6); Lymphocytes % 20.3 %; Mean Corpuscular HGB Conc 34.4 g/dL (31.6-35.5); Mean Corpuscular Hemoglobin 28.9 pg (28.0-33.3); Mean Platelet Volume 10.3 fL (9.4-12.4); Monocytes # 0.4 K/mcL (0.0-1.3); Monocytes % 6.5 %; Neutrophils # 4.5 K/mcL (1.6-8.9); Nucleated Red Blood Cells 0.3 /100 WBC (0); Platelet Count 184 K/mcL (140-400); Red Cell Distribution Width 14.2 % (11.5-14.5); Segmented Neutrophils % 71.6 %
[2018-02-22 09:44] LABS: Calcium 10.7 mg/dL (8.6-10.3); Potassium 3.9 mEq/L (3.5-5.1)
[2018-02-22] MEDS: Nicotine 14 MG PATCH.TD24 TD SCH (16:56)
--- NOTE | 2018-02-22 16:58 | Discharge Summary ---
Orders not resulted at time of discharge: Pending orders 02/20/18 06:00 Streptococcus A Rapid Test [RM] Stat 02/21/18 06:00 Culture,Throat [RM] Stat Date of Encounter: 02/22/18 Time of Encounter: 16:48 - Discharge Diagnosis (1) HEMANTH (acute kidney injury) Status: Acute (2) COPD (chronic obstructive pulmonary disease) Status: Chronic Qualifiers: COPD type: unspecified COPD Qualified Code(s): J44.9 - Chronic obstructive pulmonary disease, unspecified (3) Elevated troponin Status: Acute (4) Pulmonary nodule Status: Acute (5) DVT prophylaxis Status: Acute Hospital course: Ms. Dinero is a 62 year old female - Time Spent with Patient Total time spent providing and/or coordinating discharge services: - Discharge Medications Prescriptions: Nicotine Patch [Nicoderm] 14 mg TD DAILY #2 patch.td24 Nicotine Patch [Nicoderm] 14 mg TD DAILY #30 patch.td24 Home Medications: Aspirin [Adult Low Dose Aspirin EC] 81 mg PO DAILY 11/28/15 [History] Atorvastatin Calcium [Lipitor] 80 mg PO HS 11/28/15 [History] Carbidopa/Levodopa 25/100 [Sinemet 25/100] 2 each PO TID 11/28/15 [History] Carvedilol [Coreg] 25 mg PO BID 11/28/15 [History] Citalopram Hydrobromide [Citalopram HBr] 40 mg PO DAILY 11/28/15 [History] Furosemide [Lasix] 40 mg PO DAILY 11/28/15 [History] GlipiZIDE XL (24 HR) [Glucotrol XL] 10 mg PO DAILY 11/28/15 [History] Iron Polysaccharide Complex [Ferric X-150] 150 mg PO BID 11/28/15 [History] Losartan Potassium [Cozaar] 100 mg PO DAILY 11/28/15 [History] Ropinirole HCl [Requip] 2 mg PO HS 11/28/15 [History] hydrALAZINE [HydrALAZINE] 25 mg PO BID 11/28/15 [History] metFORMIN [Glucophage] 500 mg PO TID 11/28/15 [History] Omeprazole [PriLOSEC] 20 mg PO DAILY 03/26/17 [History] GuaiFENesin ER [Mucinex] 600 mg PO BID #20 tbbp.12hr 03/28/17 [Rx] Oxygen 2 l IN CONT #1 each 03/28/17 [Rx] amLODIPine [Norvasc] 5 mg PO DAILY #30 tablet 03/28/17 [Rx] Cholecalciferol (D-3) [Vitamin D] 2,000 unit PO DAILY 02/20/18 [History] Cinacalcet [Sensipar] 30 mg PO DAILY 02/20/18 [History] Nicotine Patch [Nicoderm] 14 mg TD DAILY #2 patch.td24 02/22/18 [Rx] Nicotine Patch [Nicoderm] 14 mg TD DAILY #30 patch.td24 02/22/18 [Rx] Allergies/Adverse Reactions: 3 Allergy/AdvReac Type Severity Reaction Status Date / Time No Known Allergies Allergy Verified 02/20/18 08:56 Date of admission: 02/20/18 12:11 Primary care physician: Ramon Joseph - Constitutional Vitals: Temp Pulse Resp BP Pulse Ox 98.2 F 76 16 156/78 93 02/22/18 15:54 02/22/18 15:54 02/22/18 15:54 02/22/18 15:54 02/22/18 15:54 - Patient Status Condition: Fair - Discharge Instructions Follow Up With: Sumit Quevedo MD [Partnered Physician] - 02/25/18 10:00 am Fernando Soto DO [Primary Care Provider] - 02/27/18 10:15 am
--- NOTE | 2018-02-22 17:10 | Internal Med Progress Note ---
Date of Encounter: 02/22/18 Time of Encounter: 17:07 - Assessment and plan (1) HEMANTH (acute kidney injury) Current Visit: Yes Status: Resolved Assessment and plan: 1 creatinine has returned to baseline. We will continue to monitor avoid nephrotoxins (2) COPD (chronic obstructive pulmonary disease) Current Visit: Yes Status: Chronic Assessment and plan: Faint expiratory wheezes noted at this time continues up cough with sputum production describes as clear. We will obtain sputum culture. Chest x-ray with pulmonary nodule 1.5 cm within the right upper lobe. Radiology suggesting CT with contrast however patient does have renal disease, we will defer the contrast. Did discuss these results with the patient who is requesting to have CT completed as outpatient. Continue with antibiotics, steroids oxygen as needed I did encourage patient to stop smoking offer patient a nicotine patch which she agreed Qualifiers: COPD type: unspecified COPD Qualified Code(s): J44.9 - Chronic obstructive pulmonary disease, unspecified (3) Elevated troponin Current Visit: Yes Status: Acute Assessment and plan: No chest pain at this time. Likely demand ischemia. Patient has known history of coronary artery disease Cardiology was consulted cardiac echo completed which did reveal preserved EF severe LVH which was seen in previous echo 2017. Cardiology recommending better blood pressure control Norvasc was increased. Cardiology will see patient as outpatient We will continue with cardiac monitoring (4) Pulmonary nodule Current Visit: Yes Status: Acute Assessment and plan: Will need CT chest for further evaluation-radiology recommending CT of chest with contrast however at this time patient creatinine is elevated. Patient does have renal disease we will defer contrast. I did discuss the findings with the patient she is requesting CT as outpatient (5) Hyperglycemia Current Visit: Yes Status: Acute Assessment and plan: 1 patient is a diabetic she is currently receiving steroids due to COPD. Patient also has been noncompliant with diet it appears she has been snacking in her room. Blood sugar is elevated at 410. We will cover with sliding scale. Patient will be educated on the importance of ADA diet. We will continue to monitor blood glucose before meals at bedtime continue with sliding scale insulin. We will hold oral diabetic medication for now (6) Diabetes mellitus Current Visit: Yes Status: Acute Assessment and plan: Accu-Cheks before meals at bedtime with sliding scale insulin. Hold oral diabetic medications Diabetic diet Patient will be educated on the importance of adherence to ADA diet Qualifiers: Diabetes mellitus type: type 2 Diabetes mellitus long-term insulin use: without long-term use Diabetes mellitus complication status: with kidney complications Diabetes mellitus complication detail: with chronic kidney disease Chronic kidney disease stage: stage 3 (moderate) Qualified Code(s): E11.22 - Type 2 diabetes mellitus with diabetic chronic kidney disease; N18.3 - Chronic kidney disease, stage 3 (moderate); N18.3 - Chronic kidney disease, stage 3 (moderate) (7) DVT prophylaxis Current Visit: Yes Status: Acute Assessment and plan: SCDs, heparin subcutaneous for DVT prophylaxis - Time Spent With Patient Total time spent is greater than 50% in coordination of care (as documented) at patient's floor/unit and/or counseling patient: - Subjective Interval history: I examined the patient at bedside. At originally anticipated discharging patient today however blood sugar was elevated at 410. Patient is on steroids as well as I suspect that she has been noncompliant with diet. I have noted some candy in her room. Nursing staff will educate patient concerning diabetic diet especially while on steroids. I also discussed with patient results of chest x-ray which did show a nodule 1.5 cm. Patient is requesting to have chest CT completed as outpatient. We also discussed smoking cessation patient is interested in nicotine patches. We will will have nursing call pharmacy and check into cost of patches. We will keep patient overnight and anticipate discharge in a.m. - Constitutional Vitals: Temp Pulse Resp BP Pulse Ox 98.2 F 76 16 156/78 93 02/22/18 15:54 02/22/18 15:54 02/22/18 15:54 02/22/18 15:54 02/22/18 15:54 General appearance: Present: A&O X 3 - Head Head exam: Present: atraumatic, normocephalic - Eye Eye exam: Present: PERRL, conjuntiva pink, sclera anicteric Pupils: Present: PERRL - Neck Neck exam general surgery: Present: supple, trachea midline. Absent: lymphadenopathy - Respiratory Respiratory exam: Present: CTAB, wheezes. Absent: accessory muscle use, rales, rhonchi Additional comments: faint wheezes - Cardiovascular Cardiovascular exam: Present: RRR, +S1, +S2. Absent: diastolic murmur, gallop, rubs, systolic murmur - GI/Abdominal GI/Abdominal exam: Present: normal bowel sounds, soft, no peritoneal signs. Absent: distended, tenderness - Extremities Exam Extremities exam: Present: warm, radial pulses palpable and symmetrical. Absent : calf tenderness, cyanotic, pedal edema - Neurological Exam Neurological exam: Present: CN II-XII intact, oriented X3, no focal deficits. Absent: pronater drift, facial droop, speech deficit Internal Medicine: Result - Labs CBC & Chem 7: 02/22/18 08:29 02/22/18 08:29 Labs: Short CBC 02/22/18 Range/Units 08:29 WBC 6.3 (4.3-11.1) K/mcL Hgb 13.6 D (11.5-15.4) g/dL Hct 39.5 (35.3-44.9) % Plt Count 184 (140-400) K/mcL Neutrophils # 4.5 (1.6-8.9) K/mcL BMP 02/22/18 08:29 Sodium 138 Potassium 3.9 Chloride 104 Carbon Dioxide 25 BUN 22 Creatinine 1.16 Glucose 84 Calcium 10.7 H - ABG Interpretation ABG results: PT/INR, D-dimer PT 12.5 Seconds (9.4-12.1) H 02/21/18 00:35 Consult Discharge Plan - Plan Referrals: Sumit Quevedo MD [Partnered Physician] - 02/25/18 10:00 am Fernando Soto DO [Primary Care Provider] - 02/27/18 10:15 am Prescriptions: Nicotine Patch [Nicoderm] 14 mg TD DAILY #2 patch.td24 Nicotine Patch [Nicoderm] 14 mg TD DAILY #30 patch.td24
[2018-02-22] MEDS: rOPINIRole 1 MG TABLET PO SCH (21:25)
[2018-02-23] MEDS: Ipratropium/Albuterol Neb 3 ML IH SCH ×3 (03:32→11:34)
[2018-02-23 04:27] LABS: Basophils % 0.3 %; Eosinophils % 0.1 %; Hematocrit 34.3 % (35.3-44.9); Hemoglobin 11.7 g/dL (11.5-15.4); Immature Granulocytes % 1.1 % (0-4); Lymphocytes # 1.4 K/mcL (0.6-4.6); Lymphocytes % 18.8 %; Mean Corpuscular HGB Conc 34.1 g/dL (31.6-35.5); Mean Corpuscular Hemoglobin 28.5 pg (28.0-33.3); Mean Corpuscular Volume 83.7 fL (83.0-100.0); Monocytes # 0.7 K/mcL (0.0-1.3); Monocytes % 9.1 %; Neutrophils # 5.3 K/mcL (1.6-8.9); Platelet Count 186 K/mcL (140-400); Segmented Neutrophils % 70.6 %
[2018-02-23 04:53] LABS: Calcium 10.5 mg/dL (8.6-10.3); Potassium 3.9 mEq/L (3.5-5.1)
[2018-02-23] MEDS: Doxycycline 100 MG in 0.9 % Sodium Chloride Mini Bag 100 ML IVPB SCH (05:51)
[2018-02-23] MEDS: *HR* Heparin 5,000 UNIT/ML VIAL SQ SCH (05:51)
[2018-02-23] MEDS: hydrALAZINE 25 MG TABLET PO SCH (06:07)
[2018-02-23] MEDS: Iron Polysaccharide Complex 150 MG CAPSULE PO SCH (08:23)
[2018-02-23] MEDS: Cholecalciferol (D-3) 1,000 UNIT TABLET PO SCH (08:23)
[2018-02-23] MEDS: predniSONE 20 MG TABLET PO SCH (08:23)
[2018-02-23] MEDS: Carbidopa/Levodopa 25/100 TABLET PO SCH (08:23)
[2018-02-23] MEDS: Aspirin Enteric Coated 81 MG Tablet PO SCH (08:23)
[2018-02-23] MEDS: amLODIPine 5 MG TABLET PO SCH (08:24)
[2018-02-23] MEDS: cefTRIAXone 2,000 MG in Water for inj. (sterile) 20 ML 20 ML IVPB SCH (08:24)
[2018-02-23] MEDS: Insulin LISPRO 300 UNITS/3 ML VIAL SQ SCH (08:32)
[2018-02-23] MEDS: Furosemide 40 MG TABLET PO SCH (10:09)
[2018-02-23 11:34] VITALS: BP 135/77
--- NOTE | 2018-02-23 12:38 | Discharge Summary ---
- NOTES TO OUTPATIENT PROVIDER Notes to Outpatient Provider: -Patient is on steroid -had elevated blood sugar will be to monitor-Cardiology increased norvasc. -We will need to follow up with nephrology/cardiology. -1.5 cm right upper lobe pulmonary nodule for which CT of the chest with. contrast is recommended.-Due to CK D, patient will not be able to receive contrast. Patient requesting to complete CAT scan as outpatient. Date of Encounter: 02/23/18 Time of Encounter: 12:38 - Discharge Diagnosis (1) HEMANTH (acute kidney injury) Priority: Secondary Status: Resolved Comments: 1 improved-creatinine is returning back to baseline. Patient will follow-up with PCP as outpatient (2) COPD (chronic obstructive pulmonary disease) Priority: Primary Status: Chronic Comments: hest x-ray with pulmonary nodule 1.5 cm within the right upper lobe. Radiology suggesting CT with contrast however patient does have renal disease, we will defer the contrast. Did discuss these results with the patient who is requesting to have CT completed as outpatient. Continue with antibiotics, steroids for 5 days. Patient does have home O2 however she is concerned that it will be soon. we did perform a 6 minute walk which patient did not qualify oxygen saturations actually improved during ambulation I did encourage patient to stop smoking offer patient a nicotine patch which she agreed-we will sent home with a nicotine patch Prescription for Mucinex We will outpatient follow-up with primary care physician Qualifiers: COPD type: chronic bronchitis Chronic bronchitis type: unspecified Qualified Code(s): J42 - Unspecified chronic bronchitis (3) Elevated troponin Priority: Secondary Status: Acute Comments: 1 patient was seen by cardiology advised medical management increased Norvasc better blood pressure control Follow-up with cardiology (4) Pulmonary nodule Priority: Secondary Status: Acute Comments: chest x-ray with pulmonary nodule 1.5 cm within the right upper lobe. Radiology suggesting CT with contrast however patient does have renal disease, we will defer the contrast. Did discuss these results with the patient who is requesting to have CT completed as outpatient. (5) Hyperglycemia Priority: Secondary Status: Acute Comments: Blood glucose is improved. Advised patient to monitor diet while taking steroids. 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 Dinero is a 62 year old female past history of CAD COPD CK D presented with complaints of coughing for the past 4-5 days. She did have a productive cough denies any fevers chills she does have home oxygen, and continued to experience shortness of breath despite oxygen use. She is noncompliant with her CPAP machine she denies any chest pain on presentation lab work did reveal mild elevation in troponin, as well as an x-ray revealing a 1.5 cm right upper lobe pulmonary nodule. Cardiology was consulted for elevated troponins recommending increase and blood pressure medication. I did discuss the results of the chest x-ray patient requesting to complete CT of chest as outpatient. During his stay patient was given IV Lasix her creatinine was slightly elevated afterwards. We did give mild fluid bolus and creatinine improved. She did have some hyperglycemia as well patient was not compliant with diet and has been receiving steroids. Did advise patient benefits of compliance to ADA diet. Also discussed smoking cessation. Patient overnight and monitored blood glucose. A.m. blood glucose improved creatinine was around previous creatinines. She is hemodynamically stable at this time. I did advise patient to follow-up with primary care cardiology and nephrology. Patient verbalized understanding. I did advise patient on the benefits of ADA diet and encouraged to stop smoking. Patient was discharged home with prescriptions which I reviewed with the patient verbalized understanding of medications. She is hemodynamically stable at this time and ready for discharge. Discharge discussed with: patient - Time Spent with Patient Total time spent providing and/or coordinating discharge services: - Discharge Medications Prescriptions: Ipratropium/Albuterol Neb [Duoneb] 3 ml IH [id number] PRN #60 inhsol PRN Reason: Shortness Of Breath/Wheezing GuaiFENesin ER [Mucinex] 600 mg PO BID #20 tbbp.12hr Home Medications: Aspirin [Adult Low Dose Aspirin EC] 81 mg PO DAILY 11/28/15 [History] Atorvastatin Calcium [Lipitor] 80 mg PO HS 11/28/15 [History] Carbidopa/Levodopa 25/100 [Sinemet 25/100] 2 each PO TID 11/28/15 [History] Carvedilol [Coreg] 25 mg PO BID 11/28/15 [History] Citalopram Hydrobromide [Citalopram HBr] 40 mg PO DAILY 11/28/15 [History] Furosemide [Lasix] 40 mg PO DAILY 11/28/15 [History] GlipiZIDE XL (24 HR) [Glucotrol XL] 10 mg PO DAILY 11/28/15 [History] Iron Polysaccharide Complex [Ferric X-150] 150 mg PO BID 11/28/15 [History] Losartan Potassium [Cozaar] 100 mg PO DAILY 11/28/15 [History] Ropinirole HCl [Requip] 2 mg PO HS 11/28/15 [History] hydrALAZINE [HydrALAZINE] 25 mg PO BID 11/28/15 [History] metFORMIN [Glucophage] 500 mg PO TID 11/28/15 [History] Omeprazole [PriLOSEC] 20 mg PO DAILY 03/26/17 [History] Oxygen 2 l IN CONT #1 each 03/28/17 [Rx] amLODIPine [Norvasc] 5 mg PO DAILY #30 tablet 03/28/17 [Rx] Cholecalciferol (D-3) [Vitamin D] 2,000 unit PO DAILY 02/20/18 [History] Cinacalcet [Sensipar] 30 mg PO DAILY 02/20/18 [History] Nicotine Patch [Nicoderm] 14 mg TD DAILY #2 patch.td24 02/22/18 [Rx] Nicotine Patch [Nicoderm] 14 mg TD DAILY #30 patch.td24 02/22/18 [Rx] GuaiFENesin ER [Mucinex] 600 mg PO BID #20 tbbp.12hr 02/23/18 [Rx] Ipratropium/Albuterol Neb [Duoneb] 3 ml IH [id number] PRN #60 inhsol 02/23/18 [Rx] Allergies/Adverse Reactions: 3 Allergy/AdvReac Type Severity Reaction Status Date / Time No Known Allergies Allergy Verified 02/20/18 08:56 Date of admission: 02/22/18 19:35 Primary care physician: Ramon Joseph Discharging clinician: Tamanna Frias Anticipated date of discharge: 02/23/18 - Constitutional Vitals: Temp Pulse Resp BP Pulse Ox 98.1 F 71 14 135/77 90 02/23/18 11:33 02/23/18 11:33 02/23/18 11:33 02/23/18 11:33 02/23/18 11:33 General appearance: Present: A&O X 3 - Head Head exam: Present: atraumatic, normocephalic - Eye Eye exam: Present: PERRL, conjuntiva pink, sclera anicteric Pupils: Present: PERRL - Neck Neck exam general surgery: Present: supple, trachea midline. Absent: lymphadenopathy - Respiratory Respiratory exam: Present: CTAB. Absent: accessory muscle use, rales, rhonchi, wheezes - Cardiovascular Cardiovascular exam: Present: RRR, +S1, +S2. Absent: diastolic murmur, gallop, rubs, systolic murmur - GI/Abdominal GI/Abdominal exam: Present: normal bowel sounds, soft, no peritoneal signs. Absent: distended, tenderness - Extremities Exam Extremities exam: Present: warm, radial pulses palpable and symmetrical. Absent : calf tenderness, cyanotic, pedal edema - Neurological Exam Neurological exam: Present: CN II-XII intact, oriented X3, no focal deficits. Absent: pronater drift, facial droop, speech deficit - Skin Skin exam: Present: dry, intact - Patient Status Disposition: Home, Self-Care Condition: Fair Functional capacity at discharge: independent ambulation Overall status at discharge: patient is back to baseline - Discharge Instructions Follow Up With: Sumit Quevedo MD [Partnered Physician] - 02/25/18 10:00 am Fernando Soto DO [Primary Care Provider] - 02/27/18 10:15 am - Diet and Activity Activity: increase activity as tolerated Diet: diabetic diet, low fat, low cholesterol, low salt diet
[2018-02-24 00:46] LABS: Estimated Average Glucose 163 mg/dl; Hemoglobin A1C 7.3 %
--- NOTE | 2018-02-28 07:55 | Electrocardiograph Report ---
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
== END 2018-02-23 14:21 | disposition home or self-care (01) | DRG 202 ==
LOC: EMEROO 06:33 → 3BNU 06:33
PROVIDERS: ADMIT Internal Medicine; ATTEND Registered Nurse

== ENCOUNTER 2019-05-14 12:48 | Observation (INO) ==
[2019-05-14] MEDS ORDERED: predniSONE 20 MG TABLET PO ONE (13:45)
[2019-05-14] MEDS ORDERED: Ipratropium/Albuterol Neb 3 ML IH ONE (13:45)
[2019-05-14 13:53] LABS: Basophils % 0.3 %; Eosinophils # 0.1 K/mcL (0.0-0.6); Eosinophils % 2.3 %; Hematocrit 32.3 % (35.3-44.9); Hemoglobin 10.9 g/dL (11.5-15.4); Immature Granulocytes % 0.3 % (0-4); Lymphocytes # 0.8 K/mcL (0.6-4.6); Lymphocytes % 12.8 %; Mean Corpuscular HGB Conc 33.7 g/dL (31.6-35.5); Mean Corpuscular Hemoglobin 29.5 pg (28.0-33.3); Mean Corpuscular Volume 87.3 fL (83.0-100.0); Mean Platelet Volume 12.2 fL (9.4-12.4); Monocytes # 0.5 K/mcL (0.0-1.3); Monocytes % 8.2 %; Neutrophils # 4.6 K/mcL (1.6-8.9); Platelet Count 145 K/mcL (140-400); Red Cell Distribution Width 13.5 % (11.5-14.5); Segmented Neutrophils % 76.1 %
[2019-05-14 13:59] LABS: Bilirubin,Urine Negative (Negative); Blood,Urine Negative (Negative); Clarity,Urine Cloudy (Clear); Color,Urine Yellow (Yellow); Glucose,Urine (UA) Normal (Normal); Ketones,Urine Negative (Negative); Leukocyte Esterase,Urine Moderate (Negative); Nitrite,Urine Positive (Negative); Protein,Urine Negative (Neg-Trace); Specific Gravity,Urine 1.011 (1.010-1.025); Urobilinogen,Urine Normal (Normal)
[2019-05-14 14:03] LABS: Bacteria,Urine Many per hpf (None-Few); Hyaline Casts,Urine None Seen per lpf (None-Few); RBC,Urine 50-100 per hpf (0-3); Squamous Epithelial Cell,Urine Few per lpf (None-Few); WBC,Urine 30-50 per hpf (0-3)
[2019-05-14] MEDS ORDERED: 0.9 % Sodium Chloride 1,000 ML IVC ONE (14:16)
[2019-05-14 14:17] LABS: Calcium 10.5 mg/dL (8.6-10.3); Potassium 3.9 mEq/L (3.5-5.1)
[2019-05-14] MEDS ORDERED: cefTRIAXone 1,000 MG in Water for inj. (sterile) 10 ML IVP ONE (14:17)
[2019-05-14 14:23] LABS: Troponin I 0.04 ng/mL (< 0.04)
[2019-05-14 14:57] LABS: Thyroid Stimulating Hormone 0.921 mcIU/mL (0.340-5.600)
[2019-05-14] MEDS ORDERED: Naloxone 0.4 MG/ML INJ IVP PRN (16:05)
[2019-05-14] MEDS ORDERED: Ondansetron 4 MG/2 ML VIAL IVP PRN (16:05)
[2019-05-14] MEDS ORDERED: D5% in Water 1,000 ML IVC PRN ×2 (16:37→17:03)
[2019-05-14] MEDS ORDERED: Dextrose Gel 15 GM/37.5 ML TUBE PO PRN ×4 (16:37→17:03)
[2019-05-14] MEDS ORDERED: *HR* Dextrose 50 % in Water (Syg) 50 ML SYRINGE IVP PRN ×2 (16:37→17:03)
[2019-05-14] MEDS ORDERED: Albuterol 2.5 MG/3 ML NEBULIZER IH PRN (16:49)
[2019-05-14] MEDS: Nicotine 21 MG PATCH.TD24 TD SCH (18:14)
[2019-05-14] MEDS: Ringers Solution, Lactated 1,000 ML IVC SCH (18:15)
[2019-05-14] MEDS: Insulin LISPRO 300 UNITS/3 ML VIAL SQ SCH (18:16)
[2019-05-14 19:14] LABS: Basophils % 0.4 %; Eosinophils % 0.4 %; Immature Granulocytes % 0.4 % (0-4); Lymphocytes # 0.5 K/mcL (0.6-4.6); Lymphocytes % 6.8 %; Mean Corpuscular HGB Conc 33.2 g/dL (31.6-35.5); Mean Corpuscular Hemoglobin 29.2 pg (28.0-33.3); Mean Corpuscular Volume 88.2 fL (83.0-100.0); Mean Platelet Volume 12.5 fL (9.4-12.4); Monocytes # 0.2 K/mcL (0.0-1.3); Monocytes % 1.9 %; Neutrophils # 7.1 K/mcL (1.6-8.9); Platelet Count 149 K/mcL (140-400); Red Blood Count 4.31 M/mcL (3.82-4.97); Red Cell Distribution Width 13.5 % (11.5-14.5); Segmented Neutrophils % 90.1 %; White Blood Count 7.9 K/mcL (4.3-11.1)
[2019-05-14 19:24] LABS: Hemoglobin 12.6 g/dL (11.5-15.4)
[2019-05-14] MEDS: rOPINIRole 1 MG TABLET PO SCH (20:56)
[2019-05-14] MEDS: carvediloL 25 MG TABLET PO SCH (20:56)
[2019-05-14] MEDS: Carbidopa/Levodopa 25/100 TABLET PO SCH (20:56)
[2019-05-14] MEDS ORDERED: Insulin LISPRO 300 UNITS/3 ML VIAL SQ SCH (21:00)
[2019-05-15 05:09] LABS: Calcium 10.4 mg/dL (8.6-10.3); Magnesium 1.6 mg/dL (1.6-2.6)
[2019-05-15] MEDS: Ringers Solution, Lactated 1,000 ML IVC SCH (05:17)
[2019-05-15] MEDS: carvediloL 25 MG TABLET PO SCH ×2 (08:49→18:40)
[2019-05-15] MEDS: amLODIPine 5 MG TABLET PO SCH (08:49)
[2019-05-15] MEDS: Carbidopa/Levodopa 25/100 TABLET PO SCH ×3 (08:49→20:33)
[2019-05-15] MEDS: Cholecalciferol (D-3) 1,000 UNIT (25MCG) TABLET PO SCH (08:49)
[2019-05-15] MEDS: Nicotine 21 MG PATCH.TD24 TD SCH (08:50)
[2019-05-15] MEDS: Insulin LISPRO 300 UNITS/3 ML VIAL SQ SCH ×4 (08:50→20:53)
[2019-05-15] MEDS: Aspirin Enteric Coated 81 MG Tablet PO SCH (08:50)
[2019-05-15] MEDS: cefTRIAXone 1,000 MG in Water for inj. (sterile) 10 ML IVP SCH (14:02)
[2019-05-15] MEDS ORDERED: D5% in Water 1,000 ML IVC PRN (17:08)
[2019-05-15] MEDS ORDERED: *HR* Dextrose 50 % in Water (Syg) 50 ML SYRINGE IVP PRN (17:08)
[2019-05-15] MEDS ORDERED: Dextrose Gel 15 GM/37.5 ML TUBE PO PRN ×2 (17:08)
[2019-05-15] MEDS: *HR* Heparin 5,000 UNIT/ML VIAL SQ SCH (18:51)
[2019-05-15] MEDS: rOPINIRole 1 MG TABLET PO SCH (20:32)
[2019-05-16] MEDS: *HR* Heparin 5,000 UNIT/ML VIAL SQ SCH ×2 (05:29→17:16)
[2019-05-16 06:59] LABS: Hematocrit 31.3 % (35.3-44.9); Mean Corpuscular HGB Conc 33.2 g/dL (31.6-35.5); Mean Corpuscular Hemoglobin 29.4 pg (28.0-33.3); Mean Corpuscular Volume 88.4 fL (83.0-100.0); Mean Platelet Volume 12.5 fL (9.4-12.4); Platelet Count 148 K/mcL (140-400); Red Blood Count 3.54 M/mcL (3.82-4.97); Red Cell Distribution Width 13.6 % (11.5-14.5); White Blood Count 5.5 K/mcL (4.3-11.1)
[2019-05-16 07:03] LABS: Hemoglobin 10.4 g/dL (11.5-15.4)
[2019-05-16 07:23] LABS: Calcium 10.5 mg/dL (8.6-10.3); Potassium 3.9 mEq/L (3.5-5.1)
[2019-05-16] MEDS ORDERED: Melatonin 3 MG TABLET PO PRN (07:43)
[2019-05-16] MEDS: Nicotine 21 MG PATCH.TD24 TD SCH (08:57)
[2019-05-16] MEDS: amLODIPine 5 MG TABLET PO SCH (08:58)
[2019-05-16] MEDS: hydrALAZINE 25 MG TABLET PO SCH ×2 (08:58→20:48)
[2019-05-16] MEDS: Aspirin Enteric Coated 81 MG Tablet PO SCH (08:58)
[2019-05-16] MEDS: Carbidopa/Levodopa 25/100 TABLET PO SCH ×3 (08:58→20:40)
[2019-05-16] MEDS: Cholecalciferol (D-3) 1,000 UNIT (25MCG) TABLET PO SCH (08:58)
[2019-05-16] MEDS: Insulin LISPRO 300 UNITS/3 ML VIAL SQ SCH ×4 (08:59→20:45)
[2019-05-16] MEDS: carvediloL 25 MG TABLET PO SCH ×2 (08:59→17:16)
[2019-05-16] MEDS: cefTRIAXone 1,000 MG in Water for inj. (sterile) 10 ML IVP SCH (14:34)
[2019-05-16] MEDS: rOPINIRole 1 MG TABLET PO SCH (20:40)
[2019-05-17] MEDS: *HR* Heparin 5,000 UNIT/ML VIAL SQ SCH (06:35)
[2019-05-17 07:12] VITALS: BP 163/62
[2019-05-17] MEDS: Cholecalciferol (D-3) 1,000 UNIT (25MCG) TABLET PO SCH (08:09)
[2019-05-17] MEDS: Carbidopa/Levodopa 25/100 TABLET PO SCH (08:09)
[2019-05-17] MEDS: Aspirin Enteric Coated 81 MG Tablet PO SCH (08:10)
[2019-05-17] MEDS: hydrALAZINE 25 MG TABLET PO SCH (08:10)
[2019-05-17] MEDS: amLODIPine 5 MG TABLET PO SCH (08:10)
[2019-05-17] MEDS: Nicotine 21 MG PATCH.TD24 TD SCH (08:10)
[2019-05-17] MEDS: carvediloL 25 MG TABLET PO SCH (08:11)
[2019-05-17] MEDS: Insulin LISPRO 300 UNITS/3 ML VIAL SQ SCH (08:21)
== END 2019-05-17 11:38 | disposition home or self-care (01) ==
LOC: 3ANU 12:48 → EMEROOARM 12:48 → SUATTDRO 16:25 → 3ANU 17:04
PROVIDERS: ADMIT Internal Medicine; ATTEND Internal Medicine